=== PATIENT | female | born 1940 | race Caucasian/White ===

== ENCOUNTER → 2016-09-15 | Outpatient (CLI) | payer BC ==
[~2016-09-15] MED LIST: ACET1TAB84 PO; ALBU18002 INH; ALBUAER2 INH; AMLO-110 PO; ASPCH81X PO; CEPH500C2 PO; CHOL2000 PO; CHOL20007 PO; CLR10 PO; COEN100C7 PO; COQ-10 PO; CYCL0.052 OPB; GLUC1TAB44 PO; GLUCTAB7 PO; HYDR-5688 PO; KETO0.5S33 OPR; LETR2TAB PO; LEVO150T9 PO; LORA10CA2 PO; METF1000 PO; MOME50SP5 NAE; MULT-506 PO; OLME40TA30 PO; OMEG10007 PO; PANT40TA PO; PRED1SUS3 OPR; PREMARIN EXT; QVRINH80 INH; RANI150T3 PO; RSTOPS OPB; SIMV20TA2 PO
== END | disposition home or self-care (01) ==
LOC: C.RDSM 14:15
PROVIDERS: ATTEND Physical Medicine & Rehabilitation Sports Medicine
DX: M17.0 Bilateral primary osteoarthritis of knee (principal)

== ENCOUNTER → 2016-09-27 | Outpatient (CLI) | payer BC ==
[2016-09-27 13:16] LABS: URINE APPEARANCE CLEAR (CLEAR); URINE BILIRUBIN NEG (NEG); URINE COLOR DK YELLOW; URINE NITRITE POS (NEG); URINE SPECIFIC GRAVITY 1.003 (1.000-1.030); UROBILINOGEN NEG (NEG); ZZUR CULT IF INDIC CLEAN CATCH YES
[2016-09-27 13:23] LABS: MANUAL MICROSCOPIC REQUIRED? NO; REVIEW REQ? YES
== END | disposition home or self-care (01) ==
LOC: C.LABSPEC 10:54
PROVIDERS: ATTEND Internal Medicine
DX: R30.0 Dysuria (principal)

== ENCOUNTER → 2016-10-02 | Outpatient (CLI) | payer BC | END | disposition home or self-care (01) | LOC: C.LABBC 10:41 | PROVIDERS: ATTEND Family Medicine | DX: Z85.038 Personal history of other malignant neoplasm of large intestine (principal) ==

== ENCOUNTER → 2016-10-02 | Outpatient (CLI) | payer BC ==
--- NOTE | 2016-10-02 10:42 | DIAGNOSTIC IMAGING REPORT ---
CT OF THE CHEST WITHOUT IV CONTRAST CLINICAL HISTORY: Lung nodule. COMPARISON STUDY: Chest CTs September 22, 2014 and September 28, 2015 CT DOSE: 842.27 mGy.cm TECHNIQUE: Axial images of the chest were obtained without IV contrast. Images were reviewed in the axial, sagittal, and coronal planes. IV contrast was not administered for this examination. FINDINGS: No enlarged axillary, mediastinal or hilar lymph nodes are present. Size of the heart is at the upper limits of normal. Central airways are patent. Subpleural reticulation and groundglass opacities are unchanged. Multiple pulmonary nodules are unchanged since CT of September 22, 2014. The largest of these is an 8 mm right upper lobe nodule shown on image 106 of 336. No new nodules are identified. No pneumothorax or pleural effusion is present. Bony thorax and visualized portions of the upper abdomen are unremarkable. IMPRESSION: 1. No change in multiple pulmonary nodules since CT of September 22, 2014. Stability over this time period is indicative of a benign etiology. 2. No change in subpleural reticulation and groundglass opacities which suggest interstitial lung disease. Electronically signed by: Raymon Pate M.D. 10/02/2016 10:41 AM Dictated Date/Time: 10/02/2016 10:32 AM
== END | disposition home or self-care (01) ==
LOC: C.CTS 10:11
PROVIDERS: ATTEND Family Medicine
DX: R91.8 Other nonspecific abnormal finding of lung field (principal); Z85.038 Personal history of other malignant neoplasm of large intestine

== ENCOUNTER → 2016-10-08 | Outpatient (CLI) | payer BC ==
--- NOTE | 2016-10-08 16:13 | MAMMOGRAPHY REPORT ---
BILATERAL DIGITAL SCREENING MAMMOGRAM WITH CAD: 10/08/2016 CLINICAL HISTORY: Routine screening. Patient has no complaints. TECHNIQUE: Bilateral CC, MLO and repeat CC views with the nipples in profile were obtained. Current study was also evaluated with a Computer Aided Detection (CAD) system. COMPARISON: Comparison is made to exams dated: 09/28/2014 mammogram, 09/26/2013 mammogram, 09/22/2012 mammogram, 09/16/2011 mammogram, 09/13/2010 mammogram, and 08/28/2009 mammogram - [facility]. BREAST COMPOSITION: There are scattered areas of fibroglandular density in both breasts. FINDINGS: There is a new grouping of microcalcifications in the upper outer middle one third of the left breast, for which additional spot magnification views are recommended. There is nodularity in the posterior aspect of each breast, along the posterior nipple line on the C C views that appears similar dating back to at least 09/22/2012, and a stable subcentimeter circumsc ribed mass in the medial anterior left breast. No other suspicious mass, architectural distortion o r cluster of microcalcifications is seen bilaterally. IMPRESSION: ACR BI-RADS CATEGORY 0: INCOMPLETE EVALUATION: NEED ADDITIONAL IMAGING EVALUATION The new grouping of microcalcifications in the left upper outer breast needs additional evaluation. The patient will be called to schedule an appointment. Approximately 10% of breast cancers are not detected with mammography. A negative mammographic repor t should not delay biopsy if a clinically suggestive mass is present. Lucy Valencia M.D. ay/:10/08/2016 13:31:57 Service Tech/Welder: Judith Dominguez, [facility] letter sent: Addl Imaging 0 BI-RADS Code: ACR BI-RADS Category 0: Incomplete Evaluation: Need Additional Imaging Evaluation
== END | disposition home or self-care (01) ==
LOC: C.MAMM 12:43
PROVIDERS: ATTEND Obstetrics & Gynecology
DX: Z12.31 Encounter for screening mammogram for malignant neoplasm of breast (principal); R92.0 Mammographic microcalcification found on diagnostic imaging of breast

== ENCOUNTER → 2016-10-13 | Outpatient (CLI) | payer BC ==
--- NOTE | 2016-10-13 15:37 | MAMMOGRAPHY REPORT ---
UNILATERAL LEFT DIGITAL DIAGNOSTIC MAMMOGRAM: 10/13/2016 CLINICAL HISTORY: Call back from screening mammography for new clustered microcalcifications in the upper outer quadrant of the left breast. TECHNIQUE: Spot magnification left CC and ML views were obtained. COMPARISON: Comparison is made to exams dated: 10/08/2016 mammogram, 10/02/2015 mammogram, 09/28/2014 m ammogram, and 09/26/2013 mammogram - [facility]. BREAST COMPOSITION: There are scattered areas of fibroglandular density in the left breast. FINDINGS: There is a new 3.5 mm cluster of pleomorphic microcalcifications in the upper outer middl e one third of the left breast. No obvious associated mass, asymmetry or architectural distortion. The microcalcifications are indeterminate, warranting further evaluation with tissue sampling. IMPRESSION: ACR BI-RADS CATEGORY 4C: MODERATE SUSPICION FOR MALIGNANCY Left breast stereotactic guided biopsy is recommended for a new 3.5 mm cluster of pleomorphic microc alcifications in the left upper outer middle one third of the breast. These results and recommendations were discussed with the patient at the time of the exam. She tent atively scheduled the biopsy prior to leaving our department. Approximately 10% of breast cancers are not detected with mammography. A negative mammographic repor t should not delay biopsy if a clinically suggestive mass is present. Lucy Valencia M.D. ay/:10/13/2016 14:12:[address] Magistrate: Bridget GARCIA)(Gavin), [facility] letter sent: Abnormal 4/5 BI-RADS Code: ACR BI-RADS Category 4C: Moderate Suspicion For Malignancy
== END | disposition home or self-care (01) ==
LOC: C.MAMM 13:42
PROVIDERS: ATTEND Obstetrics & Gynecology
DX: R92.0 Mammographic microcalcification found on diagnostic imaging of breast (principal)

== ENCOUNTER → 2016-10-28 | Outpatient (CLI) | payer BC ==
--- NOTE | 2016-10-28 13:13 | Discharge Instructions ---
Discharge Instructions Procedure Procedure Date: Oct 28, 2016. Reason for visit: Left breast microcalcifications. Discharge Discharge Date: Oct 28, 2016. Discharge Diagnosis: post left breast stereotactic guided biopsy Medications Restart Stopped Medication(s): May restart Aspirin tonight Instructions Activity Recommendations: Additional Limitations (see below) Return to School/Work: no limitations Recommended Home Diet: No Limitations Provider Instructions: ACTIVITY RECOMMENDATIONS: * No lifting, pushing, pulling or exercising the affected side for three days. RETURN TO SCHOOL/WORK: * You may return to work/school after the procedure, but do not perform any strenuous activities for 24 to 48 hours. MEDICATIONS: * Tylenol (two 325 mg) every four to six hours if needed for mild pain (if not allergic to Tylenol). DIET: * Resume previous diet. SPECIAL CARE INSTRUCTIONS: * Keep biopsy site dry for 24 hours. May shower after 24 hours, but do not soak (bathe) incision. * May remove Tegaderm (plastic patch) tomorrow AFTER showering. * Leave the steri-strips on for one week. Allow the steri-strips to fall off by themselves. If not off after one week, you may remove them. You may place a Bandaid crosswise over the strips, if desired. * Apply ice 10 minutes on and 10 minutes off as needed. * Wear a bra at bedtime to sleep more comfortably for 2-3 days. * Your referring physician should have the results after approximately 5 to 7 business days. * Call for unusual bleeding, fever, drainage, etc or if you have any questions call [phone] during normal business hours or after hours call Dr Valencia, . FOLLOW UP VISIT: Follow-up with Referring Physician as scheduled. Allergies Coded Allergies: Latex1 -Allergic Contact Dermititis (Verified Allergy, Mild, RASH, ) Influenza Vaccines (Verified Allergy, Unknown, NEURO RX, 07/22/16) Hema Leal Recommendations: Call your doctor if: * Temperature above 101 degrees * Pain not relieved by pain medicine ordered * There is increased drainage or redness from any incision * You have any unanswered questions or concerns. Your Doctors Instructions noted above were prepared by provider Lucy Valencia. Patient Signature Section: Patient Instructions Signature Page Kerri Gerardo Patient (or Guardian) Signature/Date: I have read and understand the instructions given to me by my caregivers. Caregiver/RN/Doctor Signature/Date: The above-named patient and/or guardian has received patient instructions on this date. + Original Patient Signature Page (only) stays with chart. Please make copy for patient.
--- NOTE | 2016-10-28 15:57 | MAMMOGRAPHY REPORT ---
UNILATERAL LEFT DIGITAL DIAGNOSTIC MAMMOGRAM: 10/28/2016 CLINICAL HISTORY: Status post left breast stereotactic guided biopsy of a new cluster of microcalcif ications in the upper outer quadrant. Please refer to the report from left breast stereotactic biopsy performed at the same time for full detail. IMPRESSION: POST PROCEDURE IMAGING FOR MARKER PLACEMENT Please refer to the report from left breast stereotactic biopsy performed at the same time for full detail. Approximately 10% of breast cancers are not detected with mammography. A negative mammographic repor t should not delay biopsy if a clinically suggestive mass is present. Lucy Valencia M.D. ay/:10/28/2016 13:15:38 Dbas: Bridget SANDHU(Gabbi)(Gavin), [facility] BI-RADS Code: Post Procedure Imaging For Marker Placement
--- NOTE | 2016-10-28 15:57 | MAMMOGRAPHY REPORT ---
STEREOTACTIC GUIDED BIOPSY LEFT BREAST: 10/28/2016 CLINICAL HISTORY: New indeterminate 3.5 mm cluster of microcalcifications in the upper outer middle one third of left breast. Patient presents for stereotactic biopsy. COMPARISON: Comparison is made to exams dated: 10/08/2016 mammogram, 10/02/2015 mammogram, 09/28/2014 m ammogram, and 10/13/2016 mammogram - [facility]. PATIENT CONSENT: After explaining the risks, benefits and alternatives of the procedure to the patie nt, informed consent was obtained both verbally and in writing. Specific risks include: Bleeding, i nfection, puncture of adjacent structure, nontarget biopsy, sampling error, metal allergy and medica tion reaction. PROCEDURE DESCRIPTION: A time-out was performed and the left breast was confirmed as the site of bio psy. The patient was placed prone on the stereotactic biopsy table and the breast was placed in late ralmedial compression. A yard coupler image was obtained that demonstrated the clustered microcalcificatio ns in question. Repositioning was performed twice with rolling the breast due to blood vessels over lying the calcifications. Then +15 and -15 stereo pair images were obtained. The calcifications w ere targeted utilizing the coordinates obtained either computer. The skin was prepped with Betadine . 1% Lidocaine with and without epinipherine was administered as local anesthesia. A small skin inci gibran was made. Through the incision, the needle was inserted to the depth determined by the compute r. 5 samples were obtained using a [place] [employer] 9-gauge vacuum-assisted biopsy device. The specimen r adiograph demonstrated several teleservices representative microcalcifications, therefore, a metallic marker was placed at the biopsy site. There was no immediate complication. Hemostasis was achieved after severa l minutes of manual compression. The samples were sent to pathology in 2 containers one labeled wit h calcifications and the other labeled adjacent/remaining tissue. All of the samples were obtained from the same single biopsy site. Postprocedure CC and ML views of the left breast demonstrate a new dumbbell-shaped metallic biopsy m arker and no significant hematoma in the upper outer middle one third of the left breast, at the sit e of the biopsied clustered microcalcifications. IMPRESSION: STEREOTACTIC GUIDED BIOPSY Status post left breast stereotactic guided biopsy of clustered microcalcifications in the upper out er quadrant, with biopsy marker placed at the site. The patient will receive notification of the biopsy results from her referring physician. Lucy Valencia M.D. ay/:10/28/2016 13:31:08 Clothes Ironer: Bridget MERCER (R)), [facility]
== END | disposition home or self-care (01) ==
LOC: C.MAMM 12:22
PROVIDERS: ATTEND Obstetrics & Gynecology
DX: R92.0 Mammographic microcalcification found on diagnostic imaging of breast (principal); C50.919 Malignant neoplasm of unspecified site of unspecified female breast

== ENCOUNTER → 2016-11-26 | Day surgery (SDC) | payer BC ==
[2016-11-07 08:07] VITALS: BMI 39.0
[~2016-11-26] VITALS: Ht 167.6 cm; Wt 109.1 kg
[~2016-11-26] MED LIST changes: -ALBUAER2 INH; -CHOL2000 PO; -COQ-10 PO; -GLUC1TAB44 PO; -KETO0.5S33 OPR; +LIDOCAINE HCL 2% 2 ML VIAL (20MG/ML) ONE; -LORA10CA2 PO; -PRED1SUS3 OPR; +PROPOFOL IV EMULSION 10 MG/ML 20 ML VIAL IV ONE; -RSTOPS OPB; +SODIUM CHLORIDE 0.9% 500ML 500 ML IV ONE
[2016-11-26 13:50] VITALS: Ht 167.6 cm; Wt 109.1 kg
--- NOTE | 2016-11-26 14:48 | Endo History and Physical ---
History & Physical Date of Service: Nov 26, 2016. Chief Complaint: Hx colon Ca-f/u Referring Physician: Dr. Melissa Swain History of Present Illness 76 yo CF who presents for colonoscopy secondary to history of colon cancer. Past Medical History Diabetes, Arthritis, Asthma, Gastrointestinal Disorder, Reflux, Cancer, High Cholesterol, Sleep Apnea, Hypertension, Thyroid Disease Past Surgical History Hx Cardiac Surgery: No Hx Internal Defibrillator: No Hx Pacemaker: No Hx Abdominal Surgery: Yes (SIGMOIDECTOMY, CHOLECYSTECTOMY, C-SECTIONS X4, COMPLETE HYSTERECTOMY) Hx of Implantable Prosthesis: No Hx Cancer Surgery: Yes (SKIN CA - RESECTED, COLONOSCOPY, ) Hx Thoracic Surgery: No Hx Orthopedic: No Hx Urinary Tract Surgery: No Family History Esophogeal CA Social History Smoking Status: Never Smoker Hx Substance Use: No Hx Alcohol Use: No Allergies Coded Allergies: Hylan G-F 20 (Verified Allergy, Severe, KNEE SWELLING, 11/10/16) BECKY Inhibitors (Verified Allergy, Unknown, COUGH, 11/07/16) Cefaclor (Verified Allergy, Unknown, SICK, 11/07/16) Influenza Vaccines (Verified Allergy, Unknown, NEURO RX, 11/07/16) Current Medications Reported Home Medications Medications Dose Route/Sig Max Daily Dose Days Date Category [Premarin] 0.625 Mg EXT 2XWK 11/07/16 Reported Proair Respiclick (Albuterol Sulfate) 108 Mcg/Act Aer 2 Puffs INH Q4H PRN 11/07/16 Reported Coq10 (Coenzyme Q10 (Ubidecarenone)) 100 Mg Cap 1 Cap PO QAM 11/07/16 Reported Vitamin D3 (Cholecalciferol) 2,000 Unit Tab 1 Tab PO QAM 90 11/07/16 Reported Glucosamine Chondroitin (Rwuzmnecqhx-Iiertsazuai-Snb C-) 1 Tab Tab 1 Tab PO BID 11/07/16 Reported Restasis (Cyclosporine (Ophth)) 0.05 % Emu 1 Drop OPB BID 11/07/16 Reported Norvasc (Amlodipine Besylate) 5 Mg Tab 5 Mg PO QAM 11/07/16 Reported Multivitamin (Multivitamins) Tab 1 Tab PO QAM 12/24/15 Reported Aspirin Chewable (Aspirin) 81 Mg Chew 81 Mg PO QAM 12/24/15 Reported [place]-3 (Fish Oil) 1 Ea Cap 1 Cap PO TID 12/24/15 Reported Protonix (Pantoprazole Sodium) 40 Mg Tab 40 Mg PO QAM 12/24/15 Reported Zantac (Ranitidine HCl) 150 Mg Tab 150 Mg PO HS 12/24/15 Reported Glucophage (Metformin Hcl) 1,000 Mg Tab 1,000 Mg PO BID 12/24/15 Reported Levothyroxine Sodium 150 Mcg Tab 1 Tab PO QAM 12/24/15 Reported Benicar Hct 40/12.5 (Olmesartan/HCTZ) Tab 1 Tab PO QAM 12/24/15 Reported Zocor (Simvastatin) 20 Mg Tab 20 Mg PO QPM 05/10/07 Reported Nasonex (Mometasone Furoate) [place] 1 [place] SHASHI BID 05/10/07 Reported Qvar Hfa 80 Mcg * (Beclomethasone Dipropionate) Inh 2 Puff INH BID 05/10/07 Reported Vital Signs Weight (Kilograms): 109.09 Height (Feet): 5 Height (Inches): 6 Date Time Temp Pulse Resp B/P Pulse Ox O2 Delivery O2 Flow Rate FiO2 11/26/16 14:05 37.1 86 20 182/70 95 Room Air Physical Exam General Appearance: WD/WN, no apparent distress Respiratory/Chest: Auscultation: breath sounds normal Cardiovascular: Heart Auscultation: RRR Abdomen: Bowel Sounds: normal Inspection & Palpation: soft, non-distended, no tenderness, guarding & rebound Assessment and Plan Assessment: 76 yo CF who presents for colonoscopy secondary to history of colon cancer. Plan: Proceed with colonoscopy.
--- NOTE | 2016-11-26 15:10 | Discharge Instructions ---
Endoscopy Patient Instructions Date / Procedure(s) Performed Nov 26, 2016. Colonoscopy Allergy Information Coded Allergies: Hylan G-F 20 (Verified Allergy, Severe, KNEE SWELLING, 11/10/16) BECKY Inhibitors (Verified Allergy, Unknown, COUGH, 11/07/16) Cefaclor (Verified Allergy, Unknown, SICK, 11/07/16) Influenza Vaccines (Verified Allergy, Unknown, NEURO RX, 11/07/16) Discharge Date / Findings Nov 26, 2016. Diverticulosis Internal hemorrhoids Medication Instructions OK to resume all medications today as prescribed. Reported Home Medications Medications Dose Route/Sig Max Daily Dose Days Date Category [Premarin] 0.625 Mg EXT 2XWK 11/07/16 Reported Proair Respiclick (Albuterol Sulfate) 108 Mcg/Act Aer 2 Puffs INH Q4H PRN 11/07/16 Reported Coq10 (Coenzyme Q10 (Ubidecarenone)) 100 Mg Cap 1 Cap PO QAM 11/07/16 Reported Vitamin D3 (Cholecalciferol) 2,000 Unit Tab 1 Tab PO QAM 90 11/07/16 Reported Glucosamine Chondroitin (Oebiuzggyip-Wqtjrdjbezc-Shq C-) 1 Tab Tab 1 Tab PO BID 11/07/16 Reported Restasis (Cyclosporine (Ophth)) 0.05 % Emu 1 Drop OPB BID 11/07/16 Reported Norvasc (Amlodipine Besylate) 5 Mg Tab 5 Mg PO QAM 11/07/16 Reported Multivitamin (Multivitamins) Tab 1 Tab PO QAM 12/24/15 Reported Aspirin Chewable (Aspirin) 81 Mg Chew 81 Mg PO QAM 12/24/15 Reported [place]-3 (Fish Oil) 1 Ea Cap 1 Cap PO TID 12/24/15 Reported Protonix (Pantoprazole Sodium) 40 Mg Tab 40 Mg PO QAM 12/24/15 Reported Zantac (Ranitidine HCl) 150 Mg Tab 150 Mg PO HS 12/24/15 Reported Glucophage (Metformin Hcl) 1,000 Mg Tab 1,000 Mg PO BID 12/24/15 Reported Levothyroxine Sodium 150 Mcg Tab 1 Tab PO QAM 12/24/15 Reported Benicar Hct 40/12.5 (Olmesartan/HCTZ) Tab 1 Tab PO QAM 12/24/15 Reported Zocor (Simvastatin) 20 Mg Tab 20 Mg PO QPM 05/10/07 Reported Nasonex (Mometasone Furoate) Calvin 1 Calvin SHASHI BID 05/10/07 Reported Qvar Hfa 80 Mcg * (Beclomethasone Dipropionate) Inh 2 Puff INH BID 05/10/07 Reported Provider Instructions Activity Restrictions - No exercising or heavy lifting for 24 hours. - Do not drink alcohol the day of the procedure. - Do not drive a car or operate machinery until the day after the procedure. - Do not make any important decisions or sign important papers in 24 hours after the procedure. Following Day: - Return to full activity which may include returning to work/school. Diet Start your diet with liquids and light foods (jello, soup, juice, toast). Then eat your usual diet if not nauseated. Treatment For Common After Affects For mild abdominal pain, bloating, or excessive gas: - Rest - Eat lightly - Lie on right side Follow-Up Information Follow-up with Dr. Melissa Swain as scheduled Anesthesia Information What You Should Know You have had a procedure that required some medicine to reduce anxiety and discomfort. This treatment is called moderate sedation. After receiving the treatment, you may be sleepy, but you will be able to breathe on your own. The effects of the treatment may last for several hours. Follow these instructions along with Activity/Diet recommendations noted above: * Do NOT do anything where dizziness or clumsiness would be dangerous. * Rest quietly at home today, then you can be up and about tomorrow. * Have a responsible person stay with you the rest of today. * You may have had an I.V. today. If so, you may take the dressing off later today. Recommendations Call your doctor if: * Trouble breathing * Continuous vomiting for more than 24 hours * Temperature above 101 degrees * Severe abdominal pain or bloating * Pain not relieved by pain medicine ordered * There is increased drainage or redness from any incision * A large amount of rectal bleeding greater than 2-3 tablespoons. (If you had a polyp/s removed or have hemorrhoids, a small amount of blood - from the rectum is to be expected.) * You have any unanswered questions or concerns. IN THE EVENT OF A SERIOUS EMERGENCY, GO TO THE NEAREST EMERGENCY ROOM Your discharge instructions were prepared by provider Matthew Tyson. Patient Instructions Signature Page Kerri Gerardo Patient (or Guardian) Signature/Date: I have read and understand the instructions given to me by my caregivers. Caregiver/RN/Doctor Signature/Date: The above-named patient and/or guardian has received patient instructions on this date. + Original Patient Signature Page (only) stays with chart. Please make copy for patient.
--- NOTE | 2016-11-26 15:14 | GI REPORT ---
Procedure Date: 11/26/2016 2:34 PM THIS REPORT HAS BEEN AMENDED Addendum Number: 1 Addendum Date: 11/26/2016 3:52:07 PM Recommend repeat colonoscopy in 6 months. Procedure: Colonoscopy Indications: High risk colon cancer surveillance: Personal history of colonic polyps, High risk colon cancer surveillance: Personal history of colon cancer Medicines: Monitored Anesthesia Care Complications: No immediate complications. Estimated Blood Loss: Estimated blood loss: none. Procedure: Pre-Anesthesia Assessment: - Prior to the procedure, a History and Physical was performed, and patient medications and allergies were reviewed. The patient's tolerance of previous anesthesia was also reviewed. The risks and benefits of the procedure and the sedation options and risks were discussed with the patient. All questions were answered, and informed consent was obtained. Prior Anticoagulants: The patient has taken no previous anticoagulant or antiplatelet agents. ASA Grade Assessment: III - A patient with severe systemic disease. After reviewing the risks and benefits, the patient was deemed in satisfactory condition to undergo the procedure. After I obtained informed consent, the scope was passed under direct vision. Throughout the procedure, the patient's blood pressure, pulse, and oxygen saturations were monitored continuously. The Scope was introduced through the anus and advanced to the terminal ileum. The colonoscopy was performed without difficulty. The patient tolerated the procedure well. The quality of the bowel preparation was good. The terminal ileum, ileocecal valve, appendiceal orifice, and rectum were photographed. Findings: Multiple small-mouthed diverticula were found in the sigmoid colon. Non-bleeding internal hemorrhoids were found during retroflexion. The hemorrhoids were small. Impression: - Diverticulosis in the sigmoid colon. - Non-bleeding internal hemorrhoids. - No specimens collected. Recommendation: - Resume previous diet. - Continue present medications. - Repeat colonoscopy in 3 years for surveillance. - Return to primary care physician as previously scheduled. Matthew Tyson DO 11/26/2016 3:14:44 PM This report has been signed electronically. Note Initiated On: 11/26/2016 2:34 PM I attest to the content of the Intraoperative Record and orders documented therein, exceptions below Matthew Tyson DO 11/26/2016 3:52:47 PM This report has been signed electronically.
--- NOTE | 2016-11-26 15:30 | Anesthesiology Progress Note ---
Anesthesia Post Op Note Date & Time Nov 26, 2016 at 15:29 Vital Signs Pain Intensity: 0 Vital Signs Past 12 Hours Date Time Temp Pulse Resp B/P Pulse Ox O2 Delivery O2 Flow Rate FiO2 11/26/16 15:09 75 20 111/54 95 Room Air 11/26/16 14:05 37.1 86 20 182/70 95 Room Air Notes Mental Status: alert / awake / arousable, participated in evaluation Pt Amnestic to Procedure: Yes Nausea / Vomiting: adequately controlled Pain: adequately controlled Airway Patency, RR, SpO2: stable & adequate BP & HR: stable & adequate Hydration State: stable & adequate Anesthetic Complications: no major complications apparent
[2016-11-26 15:38] VITALS: BP 150/73; PULSE 73; O2SAT 94
== END | disposition home or self-care (01) ==
LOC: C.GI 13:12
PROVIDERS: ATTEND Internal Medicine
DX: Z12.11 Encounter for screening for malignant neoplasm of colon (principal); Z85.038 Personal history of other malignant neoplasm of large intestine; Z86.010 Personal history of colon polyps; K57.30 Diverticulosis of large intestine without perforation or abscess without bleeding; K64.8 Other hemorrhoids; G47.33 Obstructive sleep apnea (adult) (pediatric); E11.9 Type 2 diabetes mellitus without complications; J45.909 Unspecified asthma, uncomplicated; E78.00 Pure hypercholesterolemia, unspecified; Z90.49 Acquired absence of other specified parts of digestive tract; Z90.710 Acquired absence of both cervix and uterus; Z90.89 Acquired absence of other organs; Z88.7 Allergy status to serum and vaccine; E66.9 Obesity, unspecified; Z68.39 Body mass index [BMI] 39.0-39.9, adult; Z80.0 Family history of malignant neoplasm of digestive organs

== ENCOUNTER 2016-12-03 07:39 | Observation (INO) | payer BC ==
[2016-11-10 09:26] VITALS: BMI 39.0
--- NOTE | 2016-11-10 10:06 | PAT Medication Instructions ---
Service Date Nov 10, 2016. Current Home Medication List Albuterol Sulfate (Proair Respiclick), 2 PUFFS INH Q4H PRN for Shortness of Breath Amlodipine (Norvasc), 5 MG PO QAM Aspirin (Aspirin Chewable), 81 MG PO QAM Beclomethasone Dip (Qvar Hfa 80 Mcg *), 2 PUFF INH BID Cholecalciferol (Vitamin D3), 1 TAB PO QAM Coenzyme Q10 (Ubidecarenone) (Coq10), 1 CAP PO QAM Cyclosporine (Ophth) (Restasis), 1 DROP OPB BID Fish Oil (Boling-3), 1 CAP PO TID Nayjvnholkh-Mmlaaljwghv-Rjm C- (Glucosamine Chondroitin), 1 TAB PO BID Levothyroxine Sodium (Levothyroxine Sodium), 1 TAB PO QAM Metformin Hcl (Glucophage), 1,000 MG PO BID Mometasone Furoate (Nasonex), 1 SPRAY SHASHI BID Multivitamin (Multivitamin), 1 TAB PO QAM Olmesartan/Hctz (Benicar Hct 40/12.5), 1 TAB PO QAM Pantoprazole (Protonix), 40 MG PO QAM Ranitidine Hcl (Zantac), 150 MG PO HS Simvastatin (Zocor), 20 MG PO QPM [Premarin], 0.625 MG EXT 2XWK Medication Instructions For Your Scheduled Surgery - Continue as directed: [Premarin], 0.625 MG EXT 2XWK - Hold the following medications 2 weeks prior to surgery: Fish Oil ([place]ol[place]-3), 1 CAP PO TID Rilczdffuih-Sinyyspegoa-Wlq C- (Glucosamine Chondroitin), 1 TAB PO BID Coenzyme Q10 (Ubidecarenone) (Coq10), 1 CAP PO QAM - Hold the following medications 48 hours prior to surgery: Metformin Hcl (Glucophage), 1,000 MG PO BID - Hold the following medications the morning of surgery: Cholecalciferol (Vitamin D3), 1 TAB PO QAM Multivitamin (Multivitamin), 1 TAB PO QAM Olmesartan/Hctz (Benicar Hct 40/12.5), 1 TAB PO QAM - Take the following medications the morning of surgery with a sip of water: Aspirin (Aspirin Chewable), 81 MG PO QAM Amlodipine (Norvasc), 5 MG PO QAM Albuterol Sulfate (Proair Respiclick), 2 PUFFS INH Q4H PRN for Shortness of Breath (use if needed; BRING TO HOSPITAL) Beclomethasone Dip (Qvar Hfa 80 Mcg *), 2 PUFF INH BID Levothyroxine Sodium (Levothyroxine Sodium), 1 TAB PO QAM Mometasone Furoate (Nasonex), 1 SPRAY SHASHI BID Cyclosporine (Ophth) (Restasis), 1 DROP OPB BID Pantoprazole (Protonix), 40 MG PO QAM - Take the following medications as scheduled the night before surgery: Albuterol Sulfate (Proair Respiclick), 2 PUFFS INH Q4H PRN for Shortness of Breath Beclomethasone Dip (Qvar Hfa 80 Mcg *), 2 PUFF INH BID Mometasone Furoate (Nasonex), 1 SPRAY SHASHI BID Cyclosporine (Ophth) (Restasis), 1 DROP OPB BID Ranitidine Hcl (Zantac), 150 MG PO HS Simvastatin (Zocor), 20 MG PO QPM If you have any questions please call us at [phone] or [phone] or [phone]
[2016-11-10 11:05] LABS: BASO % 0.5 %; BASO ABS # 0.03 K/uL (0-0.2); COMPLETE YES; EOS % 1.4 %; HEMATOCRIT 40.5 % (37-47); IG% 0.2 %; LYMPH % 43.1 %; LYMPH ABS # 2.78 K/uL (1.2-3.4); MEAN CELL VOLUME 86.9 fL (80-100); MEAN CORPUSCULAR HEMOGLOBIN 29.4 pg (25-34); MEAN CORPUSCULAR HGB CONC 33.8 g/dl (32-36); MEAN PLATELET VOLUME 10.2 fL (7.4-10.4); MONO % 14.4 %; NEUT % 40.4 %; PLATELET COUNT 256 K/uL (130-400); RED BLOOD COUNT 4.66 M/uL (4.2-5.4); WHITE BLOOD COUNT 6.45 K/uL (4.8-10.8)
[2016-11-10 11:24] LABS: BUN/CREATININE RATIO 23.2 (10-20); CREATININE 0.88 mg/dl (0.60-1.20); POTASSIUM 4.3 mmol/L (3.5-5.1)
[~2016-12-03] VITALS: Ht 167.6 cm; Wt 107.0 kg
[2016-12-03] VITALS (7 sets, daily range): BP systolic 130–198; BP diastolic 59–84; PULSE 80–90; TEMP 37–37.1; O2SAT 92–95; Ht 167.6 cm; Wt 107.0 kg
[~2016-12-03 07:39] MED LIST changes: -ACET1TAB84 PO; +BUPIVACAINE 0.5 % 5 MG/1 ML MPF 30ML VIAL ONE; +CEFAZOLIN 2000 MG/60 ML D5W IV SCH; -CEPH500C2 PO; -CLR10 PO; -HYDR-5688 PO; +ISOSULFAN BLUE 10 MG/ML VIAL 5 ML ONE; +LACTATED RINGER'S 1000ML 1,000 ML IV SCH; -LETR2TAB PO; -LIDOCAINE HCL 2% 2 ML VIAL (20MG/ML) ONE; -PROPOFOL IV EMULSION 10 MG/ML 20 ML VIAL IV ONE; -SODIUM CHLORIDE 0.9% 500ML 500 ML IV ONE
[2016-12-03] MEDS ORDERED: CLR10 PO (09:08)
[2016-12-03] MEDS ORDERED: ACET1TAB84 PO (09:08)
[2016-12-03] MEDS ORDERED: PROPOFOL IV EMULSION 10 MG/ML 20 ML VIAL IV ONE ×3 (09:48→11:55)
[2016-12-03] MEDS ORDERED: LIDOCAINE HCL 2% 2 ML VIAL (20MG/ML) ONE (09:48)
[2016-12-03] MEDS ORDERED: FENTANYL CITRATE INJ 50 MCG/1 ML 2 ML VIAL ONE ×2 (09:49→11:04)
--- NOTE | 2016-12-03 10:38 | DIAGNOSTIC IMAGING REPORT ---
LEFT BREAST LYMPHOSCINTIGRAPHY INJECTIONS CLINICAL HISTORY: Left breast carcinoma COMPARISON STUDY: No previous studies for comparison. FINDINGS: 5 periareolar intradermal injections were performed utilizing a total dose of 0.5 mCi of technetium 99m Lymphoseek. No imaging was performed. The patient was sent to the operating room for intraoperative localization. IMPRESSION: Left breast lymphoscintigraphy injections were performed Electronically signed by: Ellis Ramirez M.D. 12/03/2016 10:36 AM Dictated Date/Time: 12/03/2016 10:33 AM
[2016-12-03] MEDS ORDERED: SUCCINYLCHOLINE CHLORIDE 20 MG/ML 10 ML VIAL IV ONE (11:23)
[2016-12-03] MEDS ORDERED: DiphenhydrAMINE HCL 50 MG/ML VIAL ONE (11:23)
[2016-12-03] MEDS ORDERED: DEXAMETHASONE SOD INJ 4 MG/ML VIAL ONE (11:23)
[2016-12-03] MEDS ORDERED: ONDANSETRON INJ 2 MG/ML 2 ML VIAL ONE (11:23)
[2016-12-03] MEDS ORDERED: EpHEDrine SULFATE 50MG/5ML SYR ONE (11:28)
[2016-12-03] MEDS ORDERED: METHYLENE BLUE 0.5% 10 ML VIAL ONE (11:34)
--- NOTE | 2016-12-03 11:56 | [facility] Post Operative Brief Note ---
Immediate Operative Summary Operative Date Dec 03, 2016. Pre-Operative Diagnosis Left breast cancer Post-Operative Diagnosis Same as preoperative diagnosis Procedure(s) Performed Left breast lumpectomy with needle localization and left sentinel lymph node biopsy Surgeon Dr. Alex Ochoa Helmet Hat Sweatband Puncher Surgeon(s) Scotty Chin PA-C Estimated Blood Loss 10 mL Findings SLN neg Specimens Frozen Section #1: Left sentinel lymph node #1 Sent to lab at 1118. Permanent specimens A: Left breast tissue, skin anterior, long silk lateral, short silk superior B: Additional superior tissue, left breast, methylene blue new margin C: Additional inferior tissue, left breast, methylene blue new margin Anesthesia gen Complication(s) None Disposition Recovery Room / PACU
[2016-12-03] MEDS ORDERED: HYDROCODONE/ACETAMOPHEN 5/325MG TAB PO PRN (12:00)
[2016-12-03] MEDS ORDERED: MoRPHine SULFATE 2 MG/ML CARP IV PRN (12:00)
[2016-12-03] MEDS ORDERED: MoRPHine SULFATE 4 MG/ML 1 ML CARP\\VIAL IV PRN (12:00)
[2016-12-03] MEDS ORDERED: PROMETHAZINE HCL INJ 25 MG in SODIUM CHLORIDE 0.9% 50ML 50 ML IV PRN (12:00)
[2016-12-03] MEDS ORDERED: CEFAZOLIN IV 1,000 MG in DEXTROSE 5% 50ML 50 ML IV SCH (12:00)
[2016-12-03] MEDS ORDERED: ONDANSETRON INJ 2 MG/ML 2 ML VIAL IV PRN ×2 (12:00→12:45)
[2016-12-03] MEDS ORDERED: LACTATED RINGER'S 1000ML 1,000 ML IV PRN (12:31)
--- NOTE | 2016-12-03 12:32 | Anesthesiology Progress Note ---
Anesthesia Post Op Note Date & Time Dec 03, 2016 at 12:31 Vital Signs Pain Intensity: 1 Vital Signs Past 12 Hours Date Time Temp Pulse Resp B/P Pulse Ox O2 Delivery O2 Flow Rate FiO2 12/03/16 12:25 82 17 144/55 100 Mask 10 12/03/16 12:15 87 21 141/60 100 Mask 10 12/03/16 12:07 36.4 88 16 102/58 100 Mask 10 12/03/16 09:13 37.1 90 20 198/74 95 Room Air Notes Mental Status: alert / awake / arousable, participated in evaluation Pt Amnestic to Procedure: Yes Nausea / Vomiting: adequately controlled Pain: adequately controlled Airway Patency, RR, SpO2: stable & adequate BP & HR: stable & adequate Hydration State: stable & adequate Anesthetic Complications: no major complications apparent Pt doing very well. No complaints.
--- NOTE | 2016-12-03 12:39 | MAMMOGRAPHY REPORT ---
NEEDLE LOCALIZATION LEFT BREAST: 12/03/2016 CLINICAL HISTORY: 76-year-old woman with newly diagnosed left breast DCIS presents for preoperative needle and wire localization prior to lumpectomy. COMPARISON: Comparison is made to exams dated: 10/28/2016 stereotactic biopsy, 10/28/2016 mammogram, 10/13/2016 mammogram, 10/08/2016 mammogram, 10/02/2015 mammogram, and 09/28/2014 mammogram - [facility]. PATIENT CONSENT: The risks of the procedure were explained to the patient and informed consent was o btained. The patient denied eating or drinking anything this morning that would preclude anesthesia . With the patient in the seated position, the left breast was placed in lateralmedial compression. The biopsy marker clip was targeted utilizing an alphanumeric grid. The skin was cleansed with alco hol. 1% buffered lidocaine without epinephrine was administered. A 5 cm Brewer II needle and wire commendation was inserted into the breast and confirmed to be in good position with regard to the b iopsy marker clip. Then an image was obtained in the CC projection which demonstrated the biopsy ma rker clip adjacent to the localizing needle. A small adjustment was made and the wire was locked in place. On the final image, the jay of the wire is adjacent to the biopsy marker clip, which is lo cated just anterior to the localizing needle. The procedure including approach and needle length we re discussed with the operating surgeon prior to surgery. The patient was transferred to the operat ing room in satisfactory condition. The specimen radiograph demonstrates the localizing needle and wire combination, vascular calcificat ion and the metallic biopsy marker, compatible with successful preoperative localization and subsequ ent surgical excision. Final pathology is pending. IMPRESSION: NEEDLE LOCALIZATION Status post successful preoperative needle and wire localization for biopsy proven DCIS in the left upper outer quadrant. The imaged specimen includes the intended abnormality. The patient will receive notification of the results from her referring physician. Lucy Valencia M.D. ay/:12/03/2016 11:40:16 Dinker: Stephania GARCIA)(Gavin), [facility]
--- NOTE | 2016-12-03 12:39 | OPERATIVE REPORT ---
DATE OF OPERATION: 12/03/2016 PREOPERATIVE DIAGNOSIS: Left breast cancer. POSTOPERATIVE DIAGNOSIS: Same. NAME OF OPERATION: Left partial mastectomy with sentinel lymph node biopsy. STAFF SURGEON: Dr. Ochoa. ART PSYCHOTHERAPIST: Paramjit Chin PA-C. PROCEDURE: The patient was brought in the operating room and placed on the operating table in supine position. She had a needle placed in the left breast. She had undergone injection for lymphoscintigraphy. Her left breast and chest were prepped and draped in usual fashion. Marcaine 0.5% plain was used to anesthetize the skin in the axilla. Incision made, using the Neoprobe I was able to localize the sentinel lymph node which was sent for frozen section. It was negative. During the frozen section, we did perform lumpectomy/partial mastectomy. The needle was in the upper anterior lateral breast. Elliptical incision was made around this excising a small area of necrosis just above the needle, which was from previous biopsy site. Tissue was taken from around the needle. The specimen was then marked with the skin anterior, long silk suture lateral, short silk suture superior. Additional superior and inferior tissue were taken. Both specimens were marked with methylene blue as the new margin. Clips were placed in the breast. The deep tissue was reapproximated using 2-0 plain catgut suture then the skin reapproximated in the axilla using 4-0 nylon suture and in the breast using 5-0 Prolene suture. The patient was transferred to recovery room in stable condition. As a note, Dr. Valencia did confirm that the clip from the biopsy was within the center of the specimen. I attest to the content of the Intraoperative Record and any orders documented therein. Any exceptio ns are noted below.
[2016-12-03] MEDS ORDERED: FENTANYL CITRATE INJ 50 MCG/1 ML 2 ML VIAL IV PRN (12:45)
[2016-12-03] MEDS ORDERED: PROMETHAZINE HCL INJ 12.5 MG in SODIUM CHLORIDE 0.9% 50ML 50 ML IV PRN (12:45)
[2016-12-03] MEDS ORDERED: IV FLUIDS COMPLETED PRN (13:45)
[2016-12-03] MEDS ORDERED: CEPH500C2 PO (14:15)
[2016-12-03] MEDS ORDERED: HYDR-5688 PO (14:15)
--- NOTE | 2016-12-03 14:16 | Discharge Instructions ---
Discharge Instructions Date of Service Dec 03, 2016. Admission Reason for Admission: Left Breast Cancer, Diabetes W/Hosp Loc & Lymph In Discharge Discharge Diagnosis / Problem: Lt breast cancer Discharge Goals Goal(s): Decrease discomfort, Improve function, Improve disease control Activity Recommendations Activity Limitations: as noted below Lifting Limitations: no more than 10 pounds Exercise/Sports Limitations: until after follow-up appointment May Resume Sexual Activity: when tolerated Shower/Bathe: tomorrow Driving or Machine Use: 1 week SPECIAL CARE INSTRUCTIONS: * Cover incisions and change daily for comfort/drainage. * May use ibuprofen for pain as tolerated. * Expect some swelling and bruising. Call your doctor if: * Temperature above 101 degrees * Pain not relieved by pain medicine ordered * There is increased drainage or redness from any incision * You have any unanswered questions or concerns [phone]. FOLLOW UP VISIT: If not already scheduled, please call the office for a follow-up visit. for next week- some suture removal OFFICE PHONE NUMBER: Dr. Ochoa Office . Current Hospital Diet Patient's current hospital diet: Diabetes Type 2 Diet Discharge Diet Recommended Diet: Regular Diet Procedures Procedures Performed: Left breast lumpectomy with needle localization and left sentinel lymph node biopsy Pending Studies Studies pending at discharge: no Medical Emergencies . Who to Call and When: Medical Emergencies: If at any time you feel your situation is an emergency, please call 911 immediately. . Non-Emergent Contact Non-Emergency issues call your: Primary Care Provider, Surgeon . "Provider Documentation" section prepared by Alex Ochoa. VTE Core Measure Inpt VTE Proph given/why not?: SCD's
[2016-12-03] MEDS ORDERED: ALBUTEROL 0.083% NEBU SOLN 3 ML VIAL INH PRN (14:30)
[2016-12-03] MEDS: HYDROCODONE/ACETAMOPHEN 5/325MG TAB PO PRN ×2 (16:24→20:34)
[2016-12-03] MEDS ORDERED: DEXTROSE 50% 50 ML SYR IV PRN (18:15)
[2016-12-03] MEDS ORDERED: GLUCOSE 10 TABS/TUBE PO PRN (18:15)
[2016-12-03] MEDS ORDERED: GLUCAGON FOR INJ 1 MG VIAL SQ PRN (18:15)
[2016-12-03] MEDS ORDERED: GLUCOSE 40% GEL 15 GM TUBE PO PRN (18:15)
--- NOTE | 2016-12-03 18:24 | Medical Consult ---
Consultation Date of Consultation: Dec 03, 2016. Attending Physician: Alex Ochoa M.D. Reason for Consultation: Postoperative medical management History of Present Illness This patient is a 76-year-old female with history of stage I colon cancer, hypertension, asthma, allergies, osteoarthritis, GERD, hyperlipidemia, diabetes mellitus type 2, obstructive sleep apnea, hypothyroidism, and a more recent diagnosis of left-sided breast cancer. She underwent a stereotactic breast biopsy that confirmed cancer. She underwent a left lumpectomy with sentinel lymph node biopsy today with Dr. Ochoa. Postoperatively, she is doing very well. She denies any chest pain or shortness of breath, no nausea or vomiting, no headaches, no numbness or tingling anywhere. Her pain in the breast is very minimal at this time. Past Medical/Surgical History Past medical history: Hypertension Hyperlipidemia Asthma Allergies [place] arthritis GERD Hyperlipidemia History of stage I colon cancer Diabetes mellitus type 2 Central obstructive sleep apnea Hypothyroidism Breast cancer PAST SURGICAL HISTORY Colon cancer resection of large polyp through endoscopy Cholecystectomy Tonsillectomy Cataracts [place] teeth removal D&Cs 4 C-sections Sigmoid colectomy for diverticulitis Hysterectomy for fibroids and menorrhagia Family History Noncontributory due to age Social History Smoking Status: Never Smoker Alcohol Use: none Drug Use: none Marital Status: Housing Status: lives with family Occupation Status: retired (retired medical records coordinator) Allergies Coded Allergies: Hylan G-F 20 (Verified Allergy, Severe, KNEE SWELLING, 12/03/16) BECKY Inhibitors (Verified Allergy, Unknown, COUGH, 12/03/16) Cefaclor (Verified Allergy, Unknown, SICK, 12/03/16) Influenza Vaccines (Verified Allergy, Unknown, NEURO RX, 12/03/16) Home Medications Reported Home Medications Medications Dose Route/Sig Max Daily Dose Days Date Category Dose Instructions Keflex (Cephalexin Monohydrate) 500 Mg Cap 500 Mg PO TID 12/03/16 Rx [place] 5MG/325MG (Acetaminophen/Hydrocodone Bitart) Tab 1-2 Tablet PO Q 6 HRS PRN 12/03/16 Rx PRN PAIN Claritin (Loratadine) 10 Mg Tab 10 Mg PO DAILY 12/03/16 Reported Tylenol Arthritis Ext Rel (Acetaminophen) 650 Mg Cplt 650 Mg PO BID 12/03/16 Reported "ALWAYS TAKE ONE IN MORNING, MAYBE AT NIGHT IF I NEED IT" [Premarin] 0.625 Mg EXT 2XWK 11/07/16 Reported VAGINALLY Proair Respiclick (Albuterol Sulfate) 108 Mcg/Act Aer 2 Puffs INH Q4H PRN 11/07/16 Reported Coq10 (Coenzyme Q10 (Ubidecarenone)) 100 Mg Cap 1 Cap PO QAM 11/07/16 Reported Vitamin D3 (Cholecalciferol) 2,000 Unit Tab 1 Tab PO TID 90 11/07/16 Reported Glucosamine Chondroitin (Voamkvxgalt-Lbcqrjgoxhu-Min C-) 1 Tab Tab 1 Tab PO BID 11/07/16 Reported Restasis (Cyclosporine (Ophth)) 0.05 % Emu 1 Drop OPB BID 11/07/16 Reported Norvasc (Amlodipine Besylate) 5 Mg Tab 5 Mg PO QAM 11/07/16 Reported Multivitamin (Multivitamins) Tab 1 Tab PO QAM 12/24/15 Reported Aspirin Chewable (Aspirin) 81 Mg Chew 81 Mg PO QAM 12/24/15 Reported [place]-3 (Fish Oil) 1 Ea Cap 1 Cap PO TID 12/24/15 Reported Protonix (Pantoprazole Sodium) 40 Mg Tab 40 Mg PO QAM 12/24/15 Reported Zantac (Ranitidine HCl) 150 Mg Tab 150 Mg PO HS 12/24/15 Reported Glucophage (Metformin Hcl) 1,000 Mg Tab 1,000 Mg PO BID 12/24/15 Reported Levothyroxine Sodium 150 Mcg Tab 1 Tab PO QAM 12/24/15 Reported Benicar Hct 40/12.5 (Olmesartan/HCTZ) Tab 1 Tab PO QAM 12/24/15 Reported Zocor (Simvastatin) 20 Mg Tab 20 Mg PO QPM 05/10/07 Reported Nasonex (Mometasone Furoate) [place] 1 [place] SHASHI BID 05/10/07 Reported Qvar Hfa 80 Mcg * (Beclomethasone Dipropionate) Inh 2 Puff INH BID 05/10/07 Reported Current Inpatient Medications Current Inpatient Medications Medications (Trade) Dose Ordered Sig/[place] Route Start Time Stop Time Status Last Admin Dose Admin Lactated Ringer's 1,000 ml @ 15 mls/hr Q24H IV 12/03/16 06:00 12/04/16 05:59 12/03/16 10:15 15 MLS/HR Cefazolin Sodium (Ancef 2000mg/60 ml D5W) 60 ml @ 100 mls/hr PREOP IV 12/03/16 06:00 12/03/16 18:00 12/03/16 10:35 100 MLS/HR Amlodipine Besylate (Norvasc Tab) 5 mg QAM PO 12/04/16 09:00 01/03/17 08:59 Levothyroxine Sodium (Synthroid Tab) 150 mcg DAILYBB PO 12/04/16 06:00 01/03/17 05:59 Loratadine (Claritin Tab) 10 mg DAILY PO 12/04/16 09:00 01/03/17 08:59 Pantoprazole Sodium (Protonix Tab) 40 mg QAM PO 12/04/16 09:00 01/03/17 08:59 Simvastatin (Zocor Tab) 20 mg QPM PO 12/03/16 21:00 01/02/17 20:59 Acetaminophen/ Hydrocodone Bitart ([place] 5/325 Tab) 1 tab Q4 PRN PO 12/03/16 12:00 12/17/16 11:59 12/03/16 16:24 1 TAB Acetaminophen/ Hydrocodone Bitart ([place] 5/325 Tab) 2 tab Q4 PRN PO 12/03/16 12:00 12/17/16 11:59 Morphine Sulfate (MoRPHine SULFATE INJ) 2 mg Q4H PRN IV 12/03/16 12:00 12/17/16 11:59 Morphine Sulfate 4 mg 4 mg Q4H PRN IV 12/03/16 12:00 12/17/16 11:59 Promethazine HCl/ Sodium Chloride (Phenergan Inj/ Nss 50ml) 51 ml @ 204 mls/hr Q6H PRN IV 12/03/16 12:00 01/02/17 11:59 Ondansetron HCl 4 mg 4 mg Q6H PRN IV 12/03/16 12:00 01/02/17 11:59 Cefazolin Sodium 1000 mg/Dextrose 55 ml @ 100 mls/hr Q6 IV 12/03/16 18:00 12/13/16 17:59 Promethazine HCl/ Sodium Chloride (Phenergan Inj/ Nss 50ml) 50.5 ml @ 204 mls/hr Q6H PRN IV 12/03/16 12:45 01/02/17 12:44 Miscellaneous (Iv Fluids Completed) 1 ea PRN PRN N/A 12/03/16 13:45 12/03/17 13:44 Albuterol Sulfate (Ventolin 0.083% 2.5MG/3ML Neb) 2.5 mg Q6R PRN INH 12/03/16 14:30 01/02/17 14:29 Review of Systems Constitutional: No chills, No fever Eyes: No problem reported ENT: No problem reported Respiratory: No cough, No shortness of breath Cardiovascular: No chest pain, No palpitations Abdomen: No nausea, No pain, No vomiting Musculoskeletal: No joint pain Genitourinary - Female: No problem reported Neurologic: No problem reported Psychiatric: No problem reported Endocrine: No problem reported Hematologic / Lymphatic: No problem reported Integumentary: No problem reported Allergic / Immunologic: No problem reported Physical Exam Date Time Temp Pulse Resp B/P Pulse Ox O2 Delivery O2 Flow Rate FiO2 12/03/16 16:20 37.1 87 18 156/84 94 Room Air 12/03/16 15:30 37.1 87 18 159/72 92 Room Air 12/03/16 14:16 37.0 88 19 146/71 92 Room Air 12/03/16 13:50 88 16 141/59 93 Room Air 12/03/16 13:20 94 Room Air 12/03/16 13:20 37.0 16 130/68 94 Room Air 12/03/16 13:20 Room Air 12/03/16 12:49 87 20 159/77 96 Room Air 88 88 12/03/16 12:45 83 20 158/58 97 Nasal Cannula 2 85 12/03/16 12:39 85 20 152/61 98 Nasal Cannula 2 12/03/16 12:25 82 17 144/55 100 Mask 10 12/03/16 12:15 87 21 141/60 100 Mask 10 12/03/16 12:07 36.4 88 16 102/58 100 Mask 10 12/03/16 09:13 37.1 90 20 198/74 95 Room Air General Appearance: no apparent distress, + obese Head: normocephalic, atraumatic Eyes: normal inspection, EOMI, sclerae normal ENT: hearing grossly normal, pharynx normal Neck: supple, no adenopathy, no JVD, no carotid bruits, trachea midline Respiratory/Chest: lungs clear, normal breath sounds, no respiratory distress, no accessory muscle use Cardiovascular: regular rate, rhythm, no edema, no gallop, no murmur, normal peripheral pulses Abdomen/GI: normal bowel sounds, non tender, soft (morbidly obese with very large pannus) Genitourinary - Female: external genitalia normal Back: normal inspection Extremities/Musculoskelatal: no calf tenderness, no pedal edema Neurologic/Psych: alert, normal mood/affect, oriented x 3 Skin: normal color, warm/dry, no rash, + pertinent finding (left breast with dressing in place that is clean, dry, and intact) Laboratory Results Last 24 Hours Test 12/03/16 08:52 12/03/16 12:12 Bedside Glucose 129 mg/dl 124 mg/dl Assessment & Plan This patient is a 76-year-old female with history of stage I colon cancer, hypertension, asthma, allergies, osteoarthritis, GERD, hyperlipidemia, diabetes mellitus type 2, obstructive sleep apnea, hypothyroidism, and a more recent diagnosis of left-sided breast cancer. She is here for a left lumpectomy and we are consulted for medical management. Left-sided breast cancer status post lumpectomy-pathology result pending. Dr. Ochoa is the surgeon. -Postop management as per surgeon -Pain control -DVT prophylaxis as per surgery -Going home with antibiotics -To follow up with general surgery after pathology returns -Check CBC and PRP in the morning Hypertension- is mildly hypertensive now postop. -Continue amlodipine -Agree with holding Benicar HCT in case of decreasing renal function postop, but could probably restart tomorrow upon discharge Hypothyroidism-stable -Continue home levothyroxine Asthma, allergies, obstructive sleep apnea-all stable -Nebulizers with albuterol when necessary -Continue home inhaled corticosteroid and inhaled nasal corticosteroid upon discharge Diabetes mellitus type 2-hemoglobin A1c was 6.0% in July 2016, well- controlled -Agree with holding metformin while inpatient -We'll add on Accu-Cheks and sliding scale insulin GERD-stable -Continue PPI Obstructive sleep apnea-is central in nature and CPAP does not help her, she sleeps on her side. DVT prophylaxis: SCDs Disposition: To home most likely tomorrow Additional Copies To Eduardo Swain D.O.Int.Med.
[2016-12-03] MEDS: CEFAZOLIN IV 1,000 MG in DEXTROSE 5% 50ML 50 ML IV SCH ×2 (20:33→23:56)
[2016-12-03] MEDS: INSULIN ASPART 100 UNITS/ML 3 ML PEN SC SCH (20:50)
[2016-12-03] MEDS ORDERED: SIMVASTATIN 20 MG TAB PO SCH (21:00)
[2016-12-04] MEDS: HYDROCODONE/ACETAMOPHEN 5/325MG TAB PO PRN ×4 (00:47→13:10)
[2016-12-04 03:11] VITALS: BP 130/51; PULSE 71; TEMP 36.8; O2SAT 95
[2016-12-04] MEDS: CEFAZOLIN IV 1,000 MG in DEXTROSE 5% 50ML 50 ML IV SCH ×2 (05:50→11:57)
[2016-12-04] MEDS ORDERED: LEVOTHYROXINE 150 MCG TAB PO SCH (06:00)
--- NOTE | 2016-12-04 07:19 | DISCHARGE SUMMARY ---
PRINCIPAL DIAGNOSIS: Left breast cancer. HISTORY OF PRESENT ILLNESS: The patient underwent needle localization, left partial mastectomy with sentinel lymph node biopsy. HOSPITAL COURSE: The patient was brought into the hospital on 12/03/2016 when she was taken to the operating room where she underwent left partial mastectomy with sentinel lymph node biopsy. She has done very well overnight and is felt stable for discharge home today to be followed in the surgical clinic next week. She has no drains in place.
[2016-12-04 07:31] VITALS: BP 147/75; PULSE 67; TEMP 36.6; O2SAT 96
[2016-12-04 08:02] LABS: ESTIMATED AVERAGE GLUCOSE 128 mg/dl; HA1C FLAG Normal (Normal)
[2016-12-04] MEDS: INSULIN ASPART 100 UNITS/ML 3 ML PEN SC SCH ×2 (08:44→12:00)
--- NOTE | 2016-12-04 08:45 | Anesthesiology Progress Note ---
Anesthesia Post Op Note Date & Time Dec 04, 2016 at 08:45 Vital Signs Pain Intensity: 2.5 Vital Signs Past 12 Hours Date Time Temp Pulse Resp B/P Pulse Ox O2 Delivery O2 Flow Rate FiO2 12/04/16 07:31 36.6 67 16 147/75 96 Room Air 12/04/16 03:11 36.8 71 18 130/51 95 Room Air 12/03/16 23:45 Room Air 12/03/16 23:04 37.0 80 17 154/83 95 Room Air Notes Mental Status: alert / awake / arousable, participated in evaluation Pt Amnestic to Procedure: Yes Nausea / Vomiting: adequately controlled Pain: adequately controlled Airway Patency, RR, SpO2: stable & adequate BP & HR: stable & adequate Hydration State: stable & adequate Anesthetic Complications: no major complications apparent
[2016-12-04] MEDS ORDERED: PANTOprazole SOD 40 MG TAB PO SCH (09:00)
[2016-12-04] MEDS ORDERED: LORATADINE 10 MG TAB PO SCH (09:00)
[2016-12-04] MEDS ORDERED: AMLODIPINE BESYLATE 5 MG TAB PO SCH (09:00)
[2016-12-04 13:23] VITALS: BP 147/75; PULSE 67; TEMP 36.6; O2SAT 96
--- NOTE | 2016-12-05 08:35 | MAMMOGRAPHY REPORT ---
SPECIMEN LEFT BREAST: 12/03/2016 CLINICAL HISTORY: Lumpectomy specimen in the left breast. Please refer to the report from left breast image guided needle localization performed at the same t evelyn for full detail. IMPRESSION: SPECIMEN Please refer to the report from left breast image guided needle localization performed at the same t evelyn for full detail. Lucy Valencia M.D. ay/:12/03/2016 10:21:43 Check Writer: Stephania SANDHU(Gabbi)(Gavin), [facility]
[2017-02-11] MEDS ORDERED: LETR2TAB PO (15:09)
== END 2016-12-04 14:29 | disposition home or self-care (01) ==
LOC: ENRESERVDT → ENRESERVTM → C.ACU 07:39 → C.MSW 12:01
PROVIDERS: ADMIT Surgery; ATTEND Surgery
DX: C50.912 Malignant neoplasm of unspecified site of left female breast (principal); J45.909 Unspecified asthma, uncomplicated; I10 Essential (primary) hypertension; M19.90 Unspecified osteoarthritis, unspecified site; G47.33 Obstructive sleep apnea (adult) (pediatric); E11.9 Type 2 diabetes mellitus without complications; E03.9 Hypothyroidism, unspecified; K21.9 Gastro-esophageal reflux disease without esophagitis; Z85.038 Personal history of other malignant neoplasm of large intestine

== ENCOUNTER → 2017-01-29 | Outpatient (CLI) | payer BC ==
[~2017-01-29] MED LIST changes: +ACET1TAB84 PO; -BUPIVACAINE 0.5 % 5 MG/1 ML MPF 30ML VIAL ONE; -CEFAZOLIN 2000 MG/60 ML D5W IV SCH; +CLR10 PO; -ISOSULFAN BLUE 10 MG/ML VIAL 5 ML ONE; -LACTATED RINGER'S 1000ML 1,000 ML IV SCH; +LETR2TAB PO; -PREMARIN EXT
[2017-01-29 14:43] LABS: BASO % 0.4 %; BASO ABS # 0.03 K/uL (0-0.2); COMPLETE YES; EOS % 1.5 %; HEMATOCRIT 42.1 % (37-47); IG% 0.4 %; LYMPH % 29.5 %; LYMPH ABS # 2.21 K/uL (1.2-3.4); MEAN CELL VOLUME 88.3 fL (80-100); MEAN CORPUSCULAR HEMOGLOBIN 28.7 pg (25-34); MEAN CORPUSCULAR HGB CONC 32.5 g/dl (32-36); MEAN PLATELET VOLUME 10.6 fL (7.4-10.4); MONO % 15.1 %; NEUT % 53.1 %; PLATELET COUNT 274 K/uL (130-400); RED BLOOD COUNT 4.77 M/uL (4.2-5.4); WHITE BLOOD COUNT 7.48 K/uL (4.8-10.8)
[2017-01-29 14:48] LABS: URINE APPEARANCE CLEAR (CLEAR); URINE BILIRUBIN NEG (NEG); URINE COLOR DK YELLOW; URINE EPITHELIAL CELL AUTO >30 /lpf (0-5); URINE NITRITE NEG (NEG); URINE SPECIFIC GRAVITY 1.024 (1.000-1.030); UROBILINOGEN NEG (NEG)
[2017-01-29 14:49] LABS: MANUAL MICROSCOPIC REQUIRED? NO; REVIEW REQ? YES
[2017-01-29 15:17] LABS: ALT/SGPT 32 U/L (12-78); AST/SGOT 17 U/L (15-37); BLOOD UREA NITROGEN 17 mg/dl (7-18); BUN/CREATININE RATIO 21.6 (10-20); CALCIUM 9.5 mg/dl (8.5-10.1); CARBON DIOXIDE 27 mmol/L (21-32); CHLORIDE 106 mmol/L (98-107); CREATININE 0.81 mg/dl (0.60-1.20); GLUCOSE 109 mg/dl (70-99); POTASSIUM 4.3 mmol/L (3.5-5.1); SODIUM 140 mmol/L (136-145)
[2017-01-29 15:22] LABS: RATIO 6.2 mcg/mg (0-30.0)
[2017-01-29 15:28] LABS: ALB/GLOB RATIO 1.1 (0.9-2); ALKALINE PHOSPHATASE 66 U/L (45-117); CHOLESTEROL 134 mg/dl (0-200); CHOLESTEROL/HDL RATIO 3.9; HDL CHOLESTEROL 34 mg/dl; TRIGLYCERIDES 421 mg/dl (0-150)
[2017-01-30 06:45] LABS: ESTIMATED AVERAGE GLUCOSE 128 mg/dl; HA1C FLAG Normal (Normal)
== END | disposition home or self-care (01) ==
LOC: C.LABBC 11:41
PROVIDERS: ATTEND Family Medicine
DX: E11.9 Type 2 diabetes mellitus without complications (principal); R30.0 Dysuria; E03.9 Hypothyroidism, unspecified; A08.4 Viral intestinal infection, unspecified; Z85.038 Personal history of other malignant neoplasm of large intestine; E78.5 Hyperlipidemia, unspecified

== ENCOUNTER → 2017-02-11 | Outpatient (CLI) | payer BC ==
[2017-02-11 14:54] VITALS: BP 117/68; PULSE 87; TEMP 36.9; O2SAT 94
--- NOTE | 2017-02-11 16:53 | Radiation Oncology Follow-Up ---
Radiation Oncology Follow-Up Date of Visit Feb 11, 2017. Reason For Visit One-month follow-up and cancer survivorship care plan Radiation Completion Date finished 01-13-2017 using acceleratrd partial breast irradiation Diagnosis (1) Breast cancer Histology Subtype: ductal Stage: l (A) Permanent Comment: Abnormal left breast mammogram Status post stereotactic biopsy 10/28/2016 finding of invasive ductal carcinoma grade 1 Estrogen receptor positive, progesterone receptor positive, HER-2/yong negative Status post needle localization lumpectomy with sentinel lymph node biopsy 12/03 No residual tumor Stage pT1a [id number] Status post completion of radiation therapy 01/13/2017 received 3850 cGy utilizing accelerated partial breast irradiation. Last Edited By: Tracy Anand on January 30, 2017 10:19 History of Present Illness Ms. Gerardo is a 76-year-old female who has a distant family history of breast cancer. The patient's aunt was diagnosed with breast cancer. She was treated with bilateral mastectomy and at age 61. She does not know if she from her breast cancer. She also has a niece who was diagnosed with breast cancer at age 26 and treated and is now alive and well in her 50s. The patient was being followed with serial screening mammograms. On 10/08/2016 patient underwent bilateral digital screening mammograms. There were new grouping of microcalcifications noted in the upper outer middle one third of the left breast.'s by magnification views were recommended. Therefore on every 2016 patient underwent a unilateral left digital diagnostic mammogram. This identified a new 3.5 mm cluster of pleomorphic microcalcifications in the upper outer middle one third of the left breast. No obvious associated mass, asymmetry or architectural distortion was noted. The microcalcifications were felt to be indeterminate and tissue sampling was recommended. On 10/28/2016 patient underwent a stereotactic biopsy of the upper outer quadrant of the left breast. This revealed an invasive ductal carcinoma, Jaiden grade 1 of 3. Estrogen receptors were positive (100%, strong intensity, H-score 300). Progesterone receptors were positive (95%, strong intensity, H-score 285). HER-2/yong overexpression was negative by immunohistochemistry and confirmed negative by FISH analysis. The Ki-67 proliferation index was 7% (low). Intermediate grade ductal carcinoma in situ with microcalcifications were appreciated. Case: [id number]. Patient was seen by Dr. Alex Ochoa who discussed definitive treatment options. The patient opted to proceed with breast conserving therapy. Therefore on she underwent a left partial mastectomy and sentinel node biopsy. The sentinel node was benign with no tumor seen. The lumpectomy specimen showed chronic changes consistent with the prior biopsy but no residual invasive or in situ carcinoma was seen. Case: [id number]. The final AJCC staging is therefore pT1a pN0(sn-), ER positive, NV positive and HER-2/yong negative. Patient was seen by Dr. Lopes to discuss the systemic adjuvant treatment options. He did not feel the patient required consideration of adjuvant chemotherapy. He didn't feel the patient would benefit from a course of aromatase inhibitor therapy for 5 years to start after the completion of the radiation. Options of treatment were reviewed with her. She underwent a CT simulation was found to be a candidate for accelerated partial breast irradiation. This was completed on 01/13/2017. She received 3850 cGy. Interim History She's been doing well over the past month. She denies any difficulty with skin irritation. She has noted no masses or tenderness and no change of the axilla. She did have an issue with nausea. She saw her primary care provider and was diagnosed with a viral illness. This all occurred around the same time as the initiation of Femara. She was concerned that the nausea could be related to the Femara. She periodically held the pill for one day and there was no difference in the feeling of nausea. This is now resolved and she continues to take the Femara. She has had minimal hot flashes. She is not complaining of any joint discomforts. She had mild fatigue and this is improved. She also had a dry cough and that also has improved. Allergies Coded Allergies: Hylan G-F 20 (Verified Allergy, Severe, KNEE SWELLING, 12/03/16) BECKY Inhibitors (Verified Allergy, Unknown, COUGH, 12/03/16) Cefaclor (Verified Allergy, Unknown, SICK, 12/03/16) Influenza Vaccines (Verified Allergy, Unknown, NEURO RX, 12/03/16) Home Medications Scheduled Acetaminophen (Tylenol Arthritis Ext Rel), 650 MG PO BID Amlodipine (Norvasc), 5 MG PO QAM Aspirin (Aspirin Chewable), 81 MG PO QAM Beclomethasone Dip (Qvar Hfa 80 Mcg *), 2 PUFF INH BID Cholecalciferol (Vitamin D3), 1 TAB PO TID Coenzyme Q10 (Ubidecarenone) (Coq10), 1 CAP PO QAM Cyclosporine (Ophth) (Restasis), 1 DROP OPB BID Fish Oil ([place]-3), 1 CAP PO TID Fctekbrhigf-Xwvqszxutkc-Wxf C- (Glucosamine Chondroitin), 1 TAB PO BID Letrozole (Femara), 2.5 MG PO DAILYBB Levothyroxine Sodium (Levothyroxine Sodium), 1 TAB PO QAM Loratadine (Claritin), 10 MG PO DAILY Metformin Hcl (Glucophage), 1,000 MG PO BID Mometasone Furoate (Nasonex), 1 SPRAY SHASHI BID Multivitamin (Multivitamin), 1 TAB PO QAM Olmesartan/Hctz (Benicar Hct 40/12.5), 1 TAB PO QAM Pantoprazole (Protonix), 40 MG PO QAM Ranitidine Hcl (Zantac), 150 MG PO HS Simvastatin (Zocor), 20 MG PO QPM Scheduled PRN Albuterol Sulfate (Proair Respiclick), 2 PUFFS INH Q4H PRN for Shortness of Breath Review of Systems Gastrointestinal: Symptoms: Nausea GI Comments: " some nausea - getting better " Oral: Symptoms: No Problems Respiratory: Symptoms: Dry Cough Other Respiratory: "cough getting better " Urinary: Symptoms: Nocturia Comments: nocturia times 1 Skin: Symptoms: No Problems Breast: Right Upper Arm Measurement: 37.5 Right Mid Arm Measurement: 26.0 Right Wrist Measurement: 16.0 Left Upper Arm Measurement: 38.5 Left Mid Arm Measurement: 25.5 Left Wrist Measurement: 16.3 Arm Dominence: Right Patient Cosmetic Evaluation: Excellent Staff Cosmetic Evalaluation: Excellent Physical Exam Vital Signs Date Time Temp Pulse Resp B/P (MAP) Pulse Ox O2 Delivery O2 Flow Rate FiO2 02/11/17 14:54 36.9 87 20 117/68 94 Pain: Side: Bilateral Patient Pain Scale: 0 - 10 Initial Pain Intensity: 0.0 Fatigue: None General Appearance: no apparent distress Eyes: normal inspection, EOMI ENT: normal ENT inspection, hearing grossly normal Neck: no adenopathy, thyroid normal Respiratory/Chest: lungs clear, no respiratory distress, no accessory muscle use Breast: Breast examination reveals well-healed incisions of the left breast. There are no masses or tenderness and no axillary adenopathy. There is very minimal fibrocystic tissue in the area of the incision. There is no erythema or edema. There is no wet or dry desquamation. She has no skin retractions or nipple changes. Using the Belding score cosmesis she has a excellent outcome. The right breast showed no masses or tenderness and no axillary adenopathy. Cardiovascular: regular rate, rhythm, no gallop, no murmur Extremities: no pedal edema Neurologic/Psychiatric: no motor/sensory deficits, alert, normal mood/affect Skin: warm/dry Lymphatic: no adenopathy Laboratory Studies Test 12/04/16 07:05 12/04/16 08:11 12/04/16 12:09 01/29/17 11:44 Estimated Average Glucose 128 mg/dl 128 mg/dl Hemoglobin A1c 6.1 % (4.5-5.6) 6.1 % (4.5-5.6) Hepatitis C Antibody Screen NEG (NEG) POC Glucose 102 mg/dl (70-90) 96 mg/dl (70-90) White Blood Count 7.48 K/uL (4.8-10.8) Red Blood Count 4.77 M/uL (4.2-5.4) Hemoglobin 13.7 g/dL (12.0-16.0) Hematocrit 42.1 % (37-47) Mean Corpuscular Volume 88.3 fL (80-100) Mean Corpuscular Hemoglobin 28.7 pg (25-34) Mean Corpuscular Hemoglobin Concent 32.5 g/dl (32-36) Platelet Count 274 K/uL (130-400) Mean Platelet Volume 10.6 fL (7.4-10.4) Neutrophils (%) (Auto) 53.1 % Lymphocytes (%) (Auto) 29.5 % Monocytes (%) (Auto) 15.1 % Eosinophils (%) (Auto) 1.5 % Basophils (%) (Auto) 0.4 % Neutrophils # (Auto) 3.97 K/uL (1.4-6.5) Lymphocytes # (Auto) 2.21 K/uL (1.2-3.4) Monocytes # (Auto) 1.13 K/uL (0.11-0.59) Eosinophils # (Auto) 0.11 K/uL (0-0.5) Basophils # (Auto) 0.03 K/uL (0-0.2) RDW Standard Deviation 49.6 fL (36.4-46.3) RDW Coefficient of Variation 15.3 % (11.5-14.5) Immature Granulocyte % (Auto) 0.4 % Immature Granulocyte # (Auto) 0.03 K/uL (0.00-0.02) Sodium Level 140 mmol/L (136-145) Potassium Level 4.3 mmol/L (3.5-5.1) Chloride Level 106 mmol/L (98-107) Carbon Dioxide Level 27 mmol/L (21-32) Anion Gap 7.0 mmol/L (3-11) Blood Urea Nitrogen 17 mg/dl (7-18) Creatinine 0.81 mg/dl (0.60-1.20) Estimated GFR () 82.3 Estimated GFR (Non- 71.0 BUN/Creatinine Ratio 21.6 (10-20) Random Glucose 109 mg/dl (70-99) Calcium Level 9.5 mg/dl (8.5-10.1) Total Bilirubin 0.6 mg/dl (0.2-1) Aspartate Amino Transferase (AST) 17 U/L (15-37) Alanine Aminotransferase (ALT) 32 U/L (12-78) Alkaline Phosphatase 66 U/L (45-117) Total Protein 7.3 gm/dl (6.4-8.2) Albumin 3.9 gm/dl (3.4-5.0) Globulin 3.4 gm/dl (2.5-4.0) Albumin/Globulin Ratio 1.1 (0.9-2) Triglycerides Level 421 mg/dl (0-150) Cholesterol Level 134 mg/dl (0-200) HDL Cholesterol 34 mg/dl LDL Cholesterol, Calculated mg/dl VLDL Cholesterol, Calculated mg/dl Cholesterol/HDL Ratio 3.9 Carcinoembryonic Antigen 2.3 ng/ml (0-2.5) Thyroid Stimulating Hormone (TSH) 1.760 uIu/ml (0.300-4.500) Test 01/29/17 11:59 Urine Color DK YELLOW Urine Appearance CLEAR (CLEAR) Urine pH 6.0 (4.5-7.5) Urine Specific [place] 1.024 (1.000-1.030) Urine Protein NEG (NEG) Urine Glucose (UA) NEG (NEG) Urine Ketones TRACE (NEG) Urine Occult Blood NEG (NEG) Urine Nitrite NEG (NEG) Urine Bilirubin NEG (NEG) Urine Urobilinogen NEG (NEG) Urine Leukocyte Esterase NEG (NEG) Urine WBC (Auto) 5-10 /hpf (0-5) Urine RBC (Auto) 0-4 /hpf (0-4) Urine Hyaline Casts (Auto) 1-5 /lpf (0-5) Urine Epithelial Cells (Auto) >30 /lpf (0-5) Urine Bacteria (Auto) NEG (NEG) Urine Yeast (Auto) (NONE PRSENT) Urine Random Creatinine 140.0 mg/dl Urine Random Microalbumin 8.6 mg/L Urine Microalbumin/Creatinine Ratio 6.2 mcg/mg (0-30.0) Assessment & Plan Plan: Continue regular follow-up with her primary care physician, and medical oncology. She continues on the Femara. Today we completed a cancer survivorship care plan. A copy of the document was given to the patient. She was scheduled for digital diagnostic mammograms. She'll have a left breast mammogram in 2 months. She'll then have bilateral mammography in 8 months. We asked her to return to our office in 6 months. She may call if she has any questions or concerns in the interim. Total Time In Follow-Up I spent 20 minutes speaking to the patient and performing examination. I spent 20 minutes reviewing information, preparing the survivorship document, and completing this note. Copy To Eduardo Swain D.O.Int.Med.; Alex Ochoa M.D.; Sharee Mccarthy M.D.; Teddy Wagner MD Problem Qualifiers (1) Breast cancer: Breast location: upper outer quadrant of breast Estrogen receptor status: positive Patient sex: female Laterality: left Qualified Codes: C50.412 - Malignant neoplasm of upper-outer quadrant of left female breast; Z17.0 - Estrogen receptor positive status [ER+]
== END | disposition home or self-care (01) ==
LOC: C.ONC 14:47
PROVIDERS: ATTEND Physician Assistant Medical
DX: Z08 Encounter for follow-up examination after completed treatment for malignant neoplasm (principal); Z92.3 Personal history of irradiation; Z85.3 Personal history of malignant neoplasm of breast

== ENCOUNTER → 2017-02-17 | Outpatient (CLI) | payer BC ==
[2017-02-17 14:18] LABS: BASO % 0.5 %; BASO ABS # 0.03 K/uL (0-0.2); COMPLETE YES; EOS % 2.2 %; HEMATOCRIT 40.8 % (37-47); IG% 0.4 %; LYMPH % 40.6 %; LYMPH ABS # 2.24 K/uL (1.2-3.4); MEAN CELL VOLUME 89.3 fL (80-100); MEAN CORPUSCULAR HEMOGLOBIN 29.5 pg (25-34); MEAN CORPUSCULAR HGB CONC 33.1 g/dl (32-36); MEAN PLATELET VOLUME 10.6 fL (7.4-10.4); MONO % 15.8 %; NEUT % 40.5 %; PLATELET COUNT 237 K/uL (130-400); RED BLOOD COUNT 4.57 M/uL (4.2-5.4); WHITE BLOOD COUNT 5.52 K/uL (4.8-10.8)
[2017-02-17 14:23] LABS: ALT/SGPT 40 U/L (12-78); AST/SGOT 31 U/L (15-37); BLOOD UREA NITROGEN 18 mg/dl (7-18); BUN/CREATININE RATIO 20.1 (10-20); CALCIUM 9.4 mg/dl (8.5-10.1); CARBON DIOXIDE 27 mmol/L (21-32); CHLORIDE 106 mmol/L (98-107); CREATININE 0.88 mg/dl (0.60-1.20); GLUCOSE 122 mg/dl (70-99); POTASSIUM 4.5 mmol/L (3.5-5.1); SODIUM 142 mmol/L (136-145)
[2017-02-17 14:25] LABS: ALB/GLOB RATIO 1.1 (0.9-2); ALKALINE PHOSPHATASE 63 U/L (45-117)
== END | disposition home or self-care (01) ==
LOC: C.LABBC 11:11
PROVIDERS: ATTEND Internal Medicine Hematology & Oncology
DX: C50.412 Malignant neoplasm of upper-outer quadrant of left female breast (principal)

== ENCOUNTER → 2017-03-11 | Outpatient (CLI) | payer BC ==
--- NOTE | 2017-03-11 12:32 | MAMMOGRAPHY REPORT ---
UNILATERAL LEFT DIGITAL DIAGNOSTIC MAMMOGRAM TOMOSYNTHESIS WITH CAD AND TARGETED LEFT ULTRASOUND: 03/11 CLINICAL HISTORY: History of left breast cancer status post lumpectomy November 2016 as well as radiatio n therapy. The patient reports a new palpable lump in her left breast for approximately one week, wh ich has decreased in size since she first felt it. She denies any pain or associated skin erythema a t the site of the lump. TECHNIQUE: Breast tomosynthesis in addition to standard 2D mammography was performed. Current study was also evaluated with a Computer Aided Detection (CAD) system. Left CC and MLO 2-D and tomosynthes is images and spot magnification left CC and ML views of the lumpectomy bed were obtained. COMPARISON: Comparison is made to exams dated: 10/28/2016 stereotactic biopsy, 10/28/2016 mammogram, mammogram, 10/08/2016 mammogram, 10/02/2015 mammogram, and 09/28/2014 mammogram - [facility]. BREAST COMPOSITION: There are scattered areas of fibroglandular density in the left breast. FINDINGS: A triangle marker bianchi the site of the palpable lump in the left upper outer quadrant. T here are new post surgical changes in the left upper outer quadrant from prior lumpectomy, including new architectural distortion and surgical clips at the lumpectomy bed. There is an oval 6.0 x 4.4 cm mass at the lumpectomy bed, for which ultrasound was performed. No suspicious clusters of microcalc ifications are noted at the lumpectomy bed. The remainder of the left breast is stable compared to prior exams, without suspicious masses, calcif ications, or areas of architectural distortion noted. Targeted ultrasound was performed of the area of the palpable lump pointed out by the patient, in the left breast at approximately 12:30 to 1:00 at the surgical bed. At the site of the palpable lump th ere is a large hypoechoic fluid collection which contains internal septations, which is too large to accurately measure on ultrasound but measures at least 5.0 x 3.0 x 4.1 cm. This corresponds with the mammographic mass and has the appearance of a chronic postsurgical fluid collection such as a seroma /hematoma. IMPRESSION: ACR-BI-RADS CATEGORY 3: PROBABLY BENIGN, TARGETED ULTRASOUND ACR-BI-RADS CATEGORY 3: PRO BABLY BENIGN Large 6 cm fluid collection at the lumpectomy bed in the left 12:30 to 1:00 breast, which corresponds with the palpable lump felt by the patient. The mass likely represents a postsurgical fluid collect ion such as a chronic seroma/hematoma. Recommend bilateral diagnostic mammograms in 6 months, to ree valuate the left breast postsurgical changes and fluid collection and for routine mammography of the right breast. Also recommend clinical follow-up for the palpable lump. The patient has been verbally notified of the results. Approximately 10% of breast cancers are not detected with mammography. A negative mammographic report should not delay biopsy if a clinically suggestive mass is present. Liset Pak M.D. ah/:03/11/2017 10:51:38 Rigging Up Man: Juli SANDHU(Gabbi)(Gavin), [facility] letter sent: Personal History 3 BI-RADS Code: ACR-BI-RADS Category 3: Probably Benign Ultrasound BI-RADS: ACR-BI-RADS Category 3: Pr obably Benign
== END | disposition home or self-care (01) ==
LOC: C.MAMM 09:57
PROVIDERS: ATTEND Surgery
DX: N63 Unspecified lump in breast (principal)

== ENCOUNTER → 2017-03-17 | Outpatient (CLI) | payer BC ==
[2017-03-17 13:17] LABS: BASO % 0.5 %; BASO ABS # 0.03 K/uL (0-0.2); COMPLETE YES; EOS % 1.2 %; HEMATOCRIT 40.8 % (37-47); IG% 0.5 %; LYMPH % 38.3 %; LYMPH ABS # 2.29 K/uL (1.2-3.4); MEAN CELL VOLUME 89.3 fL (80-100); MEAN CORPUSCULAR HEMOGLOBIN 30.6 pg (25-34); MEAN CORPUSCULAR HGB CONC 34.3 g/dl (32-36); MONO % 13.9 %; NEUT % 45.6 %; PLATELET COUNT 243 K/uL (130-400); RED BLOOD COUNT 4.57 M/uL (4.2-5.4); WHITE BLOOD COUNT 5.98 K/uL (4.8-10.8)
[2017-03-17 13:36] LABS: ALT/SGPT 39 U/L (12-78); BLOOD UREA NITROGEN 21 mg/dl (7-18); BUN/CREATININE RATIO 22.5 (10-20); CALCIUM 10.1 mg/dl (8.5-10.1); CARBON DIOXIDE 26 mmol/L (21-32); CHLORIDE 106 mmol/L (98-107); CREATININE 0.91 mg/dl (0.60-1.20); GLUCOSE 127 mg/dl (70-99); POTASSIUM 4.2 mmol/L (3.5-5.1); SODIUM 140 mmol/L (136-145)
[2017-03-17 13:39] LABS: ALB/GLOB RATIO 1.1 (0.9-2); ALKALINE PHOSPHATASE 62 U/L (45-117); AST/SGOT 24 U/L (15-37)
== END | disposition home or self-care (01) ==
LOC: C.LABBC 10:08
PROVIDERS: ATTEND Internal Medicine Hematology & Oncology
DX: C50.412 Malignant neoplasm of upper-outer quadrant of left female breast (principal)

== ENCOUNTER → 2017-04-07 | Outpatient (CLI) | payer BC ==
[~2017-04-07] MED LIST changes: +OPTIRAY 320 IV PRN
--- NOTE | 2017-04-07 15:16 | DIAGNOSTIC IMAGING REPORT ---
ABDOMEN AND PELVIS CT WITH IV AND ORAL CONTRAST CT DOSE: 1650.40 mGy.cm HISTORY: C18.2 Carcinoma of ascending colon. Carcinoma surveillance. 6 mon TECHNIQUE: Multiaxial CT images of the abdomen and pelvis were performed following the use of intravenous and oral contrast. A dose lowering technique was utilized adhering to the principles of ALARA. COMPARISON STUDY: Abdomen and pelvis CT 04/08/2016. FINDINGS: Stable subcentimeter bilateral pulmonary nodules with the largest in the right lower lobe measuring 6 mm. No pneumoperitoneum. No pneumatosis. No suspicious lytic or blastic osseous lesions. Fatty changes within the liver. Prior cholecystectomy. No hepatic or splenic masses. Normal pancreas. No retroperitoneal lymphadenopathy. No hydronephrosis. Small bilateral renal hypodense lesions are too small to characterize but remain stable. No retroperitoneal lymphadenopathy. Small diverticulum at the third portion of the duodenum. No change in the fat containing left periumbilical hernia. Normal bladder. The uterus is surgically absent. Anastomotic suture material at the sigmoid colon. A few colonic diverticula. No bowel wall thickening or obstruction. Stable small scarlike density along the right pelvic sidewall. IMPRESSION: 1. No evidence for metastatic disease within the abdomen or pelvis. 2. Colonic diverticulosis. 3. Stable fat-containing periumbilical hernia. 4. Stable bilateral pulmonary nodules. Electronically signed by: Tor Mcgowan M.D. 04/07/2017 3:15 PM Dictated Date/Time: 04/07/2017 3:08 PM
== END | disposition home or self-care (01) ==
LOC: C.CTS 12:34
PROVIDERS: ATTEND Family Medicine
DX: C18.2 Malignant neoplasm of ascending colon (principal); K57.30 Diverticulosis of large intestine without perforation or abscess without bleeding

== ENCOUNTER → 2017-04-09 | Outpatient (CLI) | payer BC ==
[~2017-04-09] MED LIST changes: -OPTIRAY 320 IV PRN
[2017-04-09 13:36] LABS: BLOOD UREA NITROGEN 18 mg/dl (7-18); CREATININE 0.87 mg/dl (0.60-1.20)
== END | disposition home or self-care (01) ==
LOC: C.LABBC 10:29
PROVIDERS: ATTEND Family Medicine
DX: E11.9 Type 2 diabetes mellitus without complications (principal); M19.90 Unspecified osteoarthritis, unspecified site

== ENCOUNTER → 2017-05-25 | Outpatient (CLI) | payer BC ==
[~2017-05-25] MED LIST changes: -LETR2TAB PO
== END | disposition home or self-care (01) ==
LOC: C.RDSM 11:41
PROVIDERS: ATTEND Physical Medicine & Rehabilitation Sports Medicine
DX: M17.0 Bilateral primary osteoarthritis of knee (principal)

== ENCOUNTER → 2017-06-02 | Day surgery (SDC) | payer BC ==
[2017-05-21 13:05] VITALS: Ht 166.4 cm; Wt 108.2 kg
[~2017-06-02] VITALS: Ht 166.4 cm; Wt 108.2 kg
[~2017-06-02] MED LIST changes: +PROPOFOL IV EMULSION 10 MG/ML 20 ML VIAL IV ONE
[2017-06-02 08:19] VITALS: TEMP 37.2
--- NOTE | 2017-06-02 08:43 | Endo History and Physical ---
History & Physical Date of Service: Jun 02, 2017. Chief Complaint: history of malignant polyp Referring Physician: Dr. Estrellita Herrera History of Present Illness 77 yo CF who presents for colonoscopy secondary to history of malignant polyp. Past Medical History Diabetes, Arthritis, Asthma, Gastrointestinal Disorder, Reflux, Cancer, High Cholesterol, Sleep Apnea, Hypertension, Thyroid Disease Past Surgical History Hx Cardiac Surgery: No Hx Internal Defibrillator: No Hx Pacemaker: No Hx Abdominal Surgery: Yes (SIGMOIDECTOMY, JEANMARIE, C-SECTIONS X4, GREGORY BSO, MULTIPLE D&C) Hx of Implantable Prosthesis: No Hx Post-Op Nausea and Vomiting: No Hx Cancer Surgery: Yes (SKIN CA - RESECTED, LT BREAST LUMPECTOMY, COLON POLYP REMOVAL) Hx Thoracic Surgery: No Hx Orthopedic: No Hx Urinary Tract Surgery: No Family History Esophogeal CA Social History Smoking Status: Never Smoker Hx Substance Use: No Hx Alcohol Use: No Allergies Coded Allergies: Hylan G-F 20 (Verified Allergy, Severe, KNEE SWELLING, 05/21/17) BECKY Inhibitors (Verified Allergy, Unknown, COUGH, 05/21/17) Cefaclor (Verified Allergy, Unknown, SICK, 05/21/17) Influenza Vaccines (Verified Allergy, Unknown, NEURO RX, 05/21/17) Letrozole (Verified Adverse Reaction, Unknown, LEG PAIN, 05/21/17) Levofloxacin (Verified Adverse Reaction, Unknown, "RUPTURED HAMSTRING TENDON", 05/21/17) Current Medications Reported Home Medications Medications Dose Route/Sig Max Daily Dose Days Date Category Dose Instructions Claritin (Loratadine) 10 Mg Tab 10 Mg PO QAM 12/03/16 Reported Tylenol Arthritis Ext Rel (Acetaminophen) 650 Mg Cplt 650 Mg PO BID 12/03/16 Reported "ALWAYS TAKE ONE IN MORNING, MAYBE AT NIGHT IF I NEED IT" Proair Respiclick (Albuterol Sulfate) 108 Mcg/Act Aer 2 Puffs INH Q4H PRN 11/07/16 Reported Coq10 (Coenzyme Q10 (Ubidecarenone)) 100 Mg Cap 1 Cap PO QAM 11/07/16 Reported Vitamin D3 (Cholecalciferol) 2,000 Unit Tab 1 Tab PO TID 11/07/16 Reported Glucosamine Chondroitin (Njitaaeeohp-Ugktxogvegm-Ddu C-) 1 Tab Tab 1 Tab PO BID 11/07/16 Reported Restasis (Cyclosporine (Ophth)) 0.05 % Emu 1 Drop OPB BID 11/07/16 Reported Norvasc (Amlodipine Besylate) 5 Mg Tab 5 Mg PO QAM 11/07/16 Reported Multivitamin (Multivitamins) Tab 1 Tab PO QAM 12/24/15 Reported Aspirin Chewable (Aspirin) 81 Mg Chew 81 Mg PO QAM 12/24/15 Reported [place]-3 (Fish Oil) 1 Ea Cap 1 Cap PO TID 12/24/15 Reported Protonix (Pantoprazole Sodium) 40 Mg Tab 40 Mg PO QAM 12/24/15 Reported Zantac (Ranitidine HCl) 150 Mg Tab 150 Mg PO HS 12/24/15 Reported Glucophage (Metformin Hcl) 1,000 Mg Tab 1,000 Mg PO BID 12/24/15 Reported Levothyroxine Sodium 150 Mcg Tab 1 Tab PO QAM 12/24/15 Reported Benicar Hct 40/12.5 (Olmesartan/HCTZ) Tab 1 Tab PO QAM 12/24/15 Reported Zocor (Simvastatin) 20 Mg Tab 20 Mg PO QPM 05/10/07 Reported Nasonex (Mometasone Furoate) Alton 1 Alton SHASHI BID 05/10/07 Reported Qvar Hfa 80 Mcg * (Beclomethasone Dipropionate) Inh 2 Puff INH BID 05/10/07 Reported Vital Signs Weight (Kilograms): 108.18 Height (Feet): 5 Height (Inches): 5.5 Date Time Temp Pulse Resp B/P (MAP) Pulse Ox O2 Delivery O2 Flow Rate FiO2 06/02/17 08:19 37.2 78 20 172/68 (102) 95 Room Air Physical Exam General Appearance: WD/WN, no apparent distress Respiratory/Chest: Auscultation: breath sounds normal Cardiovascular: Heart Auscultation: RRR Abdomen: Bowel Sounds: normal Inspection & Palpation: soft, non-distended, no tenderness, guarding & rebound Assessment and Plan Assessment: 77 yo CF who presents for colonoscopy secondary to history of malignant polyp. Plan: Proceed with colonoscopy.
--- NOTE | 2017-06-02 09:47 | GI REPORT ---
Procedure Date: 06/02/2017 8:50 AM Procedure: Colonoscopy Indications: High risk colon cancer surveillance: Personal history of colonic polyps Medicines: Monitored Anesthesia Care Complications: No immediate complications. Estimated Blood Loss: Estimated blood loss: none. Procedure: Pre-Anesthesia Assessment: - Prior to the procedure, a History and Physical was performed, and patient medications and allergies were reviewed. The patient's tolerance of previous anesthesia was also reviewed. The risks and benefits of the procedure and the sedation options and risks were discussed with the patient. All questions were answered, and informed consent was obtained. Prior Anticoagulants: The patient has taken aspirin, last dose was 1 day prior to procedure. ASA Grade Assessment: III - A patient with severe systemic disease. After reviewing the risks and benefits, the patient was deemed in satisfactory condition to undergo the procedure. After I obtained informed consent, the scope was passed under direct vision. Throughout the procedure, the patient's blood pressure, pulse, and oxygen saturations were monitored continuously. The scope was introduced through the anus and advanced to the terminal ileum. The colonoscopy was performed without difficulty. The patient tolerated the procedure well. The quality of the bowel preparation was good. The terminal ileum, ileocecal valve, appendiceal orifice, and rectum were photographed. Findings: A 4 mm polyp was found in the sigmoid colon. The polyp was sessile. The polyp was removed with a hot snare. Resection and retrieval were complete. Multiple small-mouthed diverticula were found in the sigmoid colon. Non-bleeding internal hemorrhoids were found during retroflexion. The hemorrhoids were small. Impression: - One 4 mm polyp in the sigmoid colon, removed with a hot snare. Resected and retrieved. - Diverticulosis in the sigmoid colon. - Non-bleeding internal hemorrhoids. Recommendation: - Resume previous diet. - Continue present medications. - Repeat colonoscopy for surveillance based on pathology results. - Return to primary care physician as previously scheduled. Matthew Tyson, DO 06/02/2017 9:47:26 AM This report has been signed electronically. Note Initiated On: 06/02/2017 8:50 AM I attest to the content of the Intraoperative Record and orders documented therein, exceptions below
--- NOTE | 2017-06-02 09:48 | Discharge Instructions ---
Endoscopy Patient Instructions Date / Procedure(s) Performed Jun 02, 2017. Colonoscopy Allergy Information Coded Allergies: Hylan G-F 20 (Verified Allergy, Severe, KNEE SWELLING, 05/21/17) BECKY Inhibitors (Verified Allergy, Unknown, COUGH, 05/21/17) Cefaclor (Verified Allergy, Unknown, SICK, 05/21/17) Influenza Vaccines (Verified Allergy, Unknown, NEURO RX, 05/21/17) Letrozole (Verified Adverse Reaction, Unknown, LEG PAIN, 05/21/17) Levofloxacin (Verified Adverse Reaction, Unknown, "RUPTURED HAMSTRING TENDON", 05/21/17) Discharge Date / Findings Jun 02, 2017. Colon polyp Diverticulosis Internal hemorrhoids Medication Instructions Stopped Medication(s): stopped Glucophage ,took ASA yesterday OK to resume all medications today as prescribed Reported Home Medications Medications Dose Route/Sig Max Daily Dose Days Date Category Dose Instructions Claritin (Loratadine) 10 Mg Tab 10 Mg PO QAM 12/03/16 Reported Tylenol Arthritis Ext Rel (Acetaminophen) 650 Mg Cplt 650 Mg PO BID 12/03/16 Reported "ALWAYS TAKE ONE IN MORNING, MAYBE AT NIGHT IF I NEED IT" Proair Respiclick (Albuterol Sulfate) 108 Mcg/Act Aer 2 Puffs INH Q4H PRN 11/07/16 Reported Coq10 (Coenzyme Q10 (Ubidecarenone)) 100 Mg Cap 1 Cap PO QAM 11/07/16 Reported Vitamin D3 (Cholecalciferol) 2,000 Unit Tab 1 Tab PO TID 11/07/16 Reported Glucosamine Chondroitin (Nzowengkydq-Otwtvpgqqju-Ftp C-) 1 Tab Tab 1 Tab PO BID 11/07/16 Reported Restasis (Cyclosporine (Ophth)) 0.05 % Emu 1 Drop OPB BID 11/07/16 Reported Norvasc (Amlodipine Besylate) 5 Mg Tab 5 Mg PO QAM 11/07/16 Reported Multivitamin (Multivitamins) Tab 1 Tab PO QAM 12/24/15 Reported Aspirin Chewable (Aspirin) 81 Mg Chew 81 Mg PO QAM 12/24/15 Reported [place]-3 (Fish Oil) 1 Ea Cap 1 Cap PO TID 12/24/15 Reported Protonix (Pantoprazole Sodium) 40 Mg Tab 40 Mg PO QAM 12/24/15 Reported Zantac (Ranitidine HCl) 150 Mg Tab 150 Mg PO HS 12/24/15 Reported Glucophage (Metformin Hcl) 1,000 Mg Tab 1,000 Mg PO BID 12/24/15 Reported Levothyroxine Sodium 150 Mcg Tab 1 Tab PO QAM 12/24/15 Reported Benicar Hct 40/12.5 (Olmesartan/HCTZ) Tab 1 Tab PO QAM 12/24/15 Reported Zocor (Simvastatin) 20 Mg Tab 20 Mg PO QPM 05/10/07 Reported Nasonex (Mometasone Furoate) [place] 1 [place] SHASHI BID 05/10/07 Reported Qvar Hfa 80 Mcg * (Beclomethasone Dipropionate) Inh 2 Puff INH BID 05/10/07 Reported Provider Instructions Activity Restrictions - No exercising or heavy lifting for 24 hours. - Do not drink alcohol the day of the procedure. - Do not drive a car or operate machinery until the day after the procedure. - Do not make any important decisions or sign important papers in 24 hours after the procedure. Following Day: - Return to full activity which may include returning to work/school. Diet Start your diet with liquids and light foods (jello, soup, juice, toast). Then eat your usual diet if not nauseated. Treatment For Common After Affects For mild abdominal pain, bloating, or excessive gas: - Rest - Eat lightly - Lie on right side Follow-Up Information Follow-up with Dr. Estrellita Herrera as scheduled Anesthesia Information What You Should Know You have had a procedure that required some medicine to reduce anxiety and discomfort. This treatment is called moderate sedation. After receiving the treatment, you may be sleepy, but you will be able to breathe on your own. The effects of the treatment may last for several hours. Follow these instructions along with Activity/Diet recommendations noted above: * Do NOT do anything where dizziness or clumsiness would be dangerous. * Rest quietly at home today, then you can be up and about tomorrow. * Have a responsible person stay with you the rest of today. * You may have had an I.V. today. If so, you may take the dressing off later today. Recommendations Call your doctor if: * Trouble breathing * Continuous vomiting for more than 24 hours * Temperature above 101 degrees * Severe abdominal pain or bloating * Pain not relieved by pain medicine ordered * There is increased drainage or redness from any incision * A large amount of rectal bleeding greater than 2-3 tablespoons. (If you had a polyp/s removed or have hemorrhoids, a small amount of blood - from the rectum is to be expected.) * You have any unanswered questions or concerns. IN THE EVENT OF A SERIOUS EMERGENCY, GO TO THE NEAREST EMERGENCY ROOM Your discharge instructions were prepared by provider Matthew Tyson. Patient Instructions Signature Page Kerri Gerardo Patient (or Guardian) Signature/Date: I have read and understand the instructions given to me by my caregivers. Caregiver/RN/Doctor Signature/Date: The above-named patient and/or guardian has received patient instructions on this date. + Original Patient Signature Page (only) stays with chart. Please make copy for patient.
--- NOTE | 2017-06-02 09:48 | Anesthesiology Progress Note ---
Anesthesia Post Op Note Date & Time Jun 02, 2017 at 09:47 Vital Signs Pain Intensity: 0 Vital Signs Past 12 Hours Date Time Temp Pulse Resp B/P (MAP) Pulse Ox O2 Delivery O2 Flow Rate FiO2 06/02/17 08:19 37.2 78 20 172/68 (102) 95 Room Air Notes Mental Status: alert / awake / arousable, participated in evaluation Pt Amnestic to Procedure: Yes Nausea / Vomiting: adequately controlled Pain: adequately controlled Airway Patency, RR, SpO2: stable & adequate BP & HR: stable & adequate Hydration State: stable & adequate Anesthetic Complications: no major complications apparent
[2017-06-02 10:14] VITALS: BP 142/65; PULSE 67; O2SAT 94
== END | disposition home or self-care (01) ==
LOC: C.GI 07:49
PROVIDERS: ATTEND Internal Medicine
DX: Z12.11 Encounter for screening for malignant neoplasm of colon (principal); D12.5 Benign neoplasm of sigmoid colon; Z85.038 Personal history of other malignant neoplasm of large intestine; K64.8 Other hemorrhoids; K57.30 Diverticulosis of large intestine without perforation or abscess without bleeding; E11.9 Type 2 diabetes mellitus without complications; M19.90 Unspecified osteoarthritis, unspecified site; J45.909 Unspecified asthma, uncomplicated; K21.9 Gastro-esophageal reflux disease without esophagitis; E78.00 Pure hypercholesterolemia, unspecified; G47.33 Obstructive sleep apnea (adult) (pediatric); I10 Essential (primary) hypertension; E03.9 Hypothyroidism, unspecified; Z90.89 Acquired absence of other organs; Z90.710 Acquired absence of both cervix and uterus; Z90.49 Acquired absence of other specified parts of digestive tract; Z87.2 Personal history of diseases of the skin and subcutaneous tissue; Z80.0 Family history of malignant neoplasm of digestive organs; Z79.82 Long term (current) use of aspirin; Z79.84 Long term (current) use of oral hypoglycemic drugs; Z85.3 Personal history of malignant neoplasm of breast; E66.01 Morbid (severe) obesity due to excess calories; Z98.41 Cataract extraction status, right eye; Z98.42 Cataract extraction status, left eye

== ENCOUNTER → 2017-06-15 | Outpatient (CLI) | payer BC ==
[~2017-06-15] MED LIST changes: -PROPOFOL IV EMULSION 10 MG/ML 20 ML VIAL IV ONE
[2017-06-15 17:36] LABS: BASO % 0.4 %; BASO ABS # 0.03 K/uL (0-0.2); COMPLETE YES; EOS % 1.2 %; HEMATOCRIT 39.8 % (37-47); IG% 0.4 %; LYMPH % 44.1 %; LYMPH ABS # 3.31 K/uL (1.2-3.4); MEAN CELL VOLUME 88.1 fL (80-100); MEAN CORPUSCULAR HEMOGLOBIN 29.9 pg (25-34); MEAN CORPUSCULAR HGB CONC 33.9 g/dl (32-36); MEAN PLATELET VOLUME 10.7 fL (7.4-10.4); MONO % 11.3 %; NEUT % 42.6 %; PLATELET COUNT 233 K/uL (130-400); RED BLOOD COUNT 4.52 M/uL (4.2-5.4)
[2017-06-15 17:52] LABS: ALB/GLOB RATIO 1.1 (0.9-2); ALKALINE PHOSPHATASE 74 U/L (45-117); ALT/SGPT 34 U/L (12-78); AST/SGOT 19 U/L (15-37); BLOOD UREA NITROGEN 19 mg/dl (7-18); BUN/CREATININE RATIO 24.4 (10-20); CALCIUM 9.6 mg/dl (8.5-10.1); CARBON DIOXIDE 27 mmol/L (21-32); CHLORIDE 105 mmol/L (98-107); CREATININE 0.79 mg/dl (0.60-1.20); GLUCOSE 98 mg/dl (70-99); POTASSIUM 4.6 mmol/L (3.5-5.1); SODIUM 139 mmol/L (136-145)
== END | disposition home or self-care (01) ==
LOC: C.LABBC 13:31
PROVIDERS: ATTEND Internal Medicine Hematology & Oncology
DX: C50.412 Malignant neoplasm of upper-outer quadrant of left female breast (principal)

== ENCOUNTER → 2017-07-28 | Outpatient (CLI) | payer BC ==
[2017-07-28 11:32] LABS: ESTIMATED AVERAGE GLUCOSE 128 mg/dl; HA1C FLAG Normal (Normal)
[2017-07-28 11:33] LABS: ALT/SGPT 39 U/L (12-78); BLOOD UREA NITROGEN 19 mg/dl (7-18); BUN/CREATININE RATIO 23.6 (10-20); CALCIUM 9.4 mg/dl (8.5-10.1); CARBON DIOXIDE 27 mmol/L (21-32); CHLORIDE 103 mmol/L (98-107); CHOLESTEROL 146 mg/dl (0-200); CREATININE 0.79 mg/dl (0.60-1.20); GLUCOSE 113 mg/dl (70-99); POTASSIUM 4.4 mmol/L (3.5-5.1); SODIUM 141 mmol/L (136-145)
[2017-07-28 11:48] LABS: CHOLESTEROL/HDL RATIO 3.9; HDL CHOLESTEROL 37 mg/dl; LDL CHOLESTEROL CALCULATED 36 mg/dl; THYROID STIMULATING HORMONE 0.822 uIu/ml (0.300-4.500); TRIGLYCERIDES 367 mg/dl (0-150); VERY LOW DENSITY LIPOPROT CALC 73 mg/dl
== END | disposition home or self-care (01) ==
LOC: C.LABBC 07:55
PROVIDERS: ATTEND Family Medicine
DX: E11.9 Type 2 diabetes mellitus without complications (principal); E03.9 Hypothyroidism, unspecified; Z85.038 Personal history of other malignant neoplasm of large intestine; R29.898 Other symptoms and signs involving the musculoskeletal system

== ENCOUNTER → 2017-08-13 | Outpatient (CLI) | payer BC ==
[~2017-08-13] MED LIST changes: -AMLO-110 PO; +AMLO5TAB3 PO; +BECL80AE6 INH; +DIPH-437 PO; +DIPH30CA2 PO; +LORA10TA51 PO; +MELA1TAB5 PO; +MOME6000 NAE; +NYQUIL PO; +OXYC-57 PO; +PROBIOTIC PO; +TRAM-10 PO; +TYLER650 PO; +WARF2TAB PO
[2017-08-13 13:45] VITALS: BP 141/58; PULSE 81; TEMP 36.6; O2SAT 94
--- NOTE | 2017-08-13 15:51 | Radiation Oncology Follow-Up ---
Radiation Oncology Follow-Up Date of Visit Aug 13, 2017. 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 Last Edited By: Trayc Anand on January 30, 2017 10:19 History of Present Illness Ms. Alexander is a 76-year-old female who has a distant family history of breast cancer. The patient's aunt was diagnosed with breast cancer. She was treated with bilateral mastectomy and at age 60. She does not know if she from her breast cancer. She also has a niece who was diagnosed with breast cancer at age 26 and treated and is now alive and well in her 50s. The patient was being followed with serial screening mammograms. On 10/08/2016 patient underwent bilateral digital screening mammograms. There were new grouping of microcalcifications noted in the upper outer middle one third of the left breast.'s by magnification views were recommended. Therefore on every 2016 patient underwent a unilateral left digital diagnostic mammogram. This identified a new 3.5 mm cluster of pleomorphic microcalcifications in the upper outer middle one third of the left breast. No obvious associated mass, asymmetry or architectural distortion was noted. The microcalcifications were felt to be indeterminate and tissue sampling was recommended. On 10/28/2016 patient underwent a stereotactic biopsy of the upper outer quadrant of the left breast. This revealed an invasive ductal carcinoma, [place] grade 1 of 3. Estrogen receptors were positive (100%, strong intensity, H-score 300). Progesterone receptors were positive (95%, strong intensity, H-score 285). HER-2/yong overexpression was negative by immunohistochemistry and confirmed negative by FISH analysis. The Ki-67 proliferation index was 7% (low). Intermediate grade ductal carcinoma in situ with microcalcifications were appreciated. Case: [id number]. Patient was seen by Dr. Alex Ochoa who discussed definitive treatment options. The patient opted to proceed with breast conserving therapy. Therefore on she underwent a left partial mastectomy and sentinel node biopsy. The sentinel node was benign with no tumor seen. The lumpectomy specimen showed chronic changes consistent with the prior biopsy but no residual invasive or in situ carcinoma was seen. Case: [id number]. The final AJCC staging is therefore pT1a pN0(sn-), ER positive, SD positive and HER-2/yong negative. Patient was seen by Dr. Lopes to discuss the systemic adjuvant treatment options. He did not feel the patient required consideration of adjuvant chemotherapy. He didn't feel the patient would benefit from a course of aromatase inhibitor therapy for 5 years to start after the completion of the radiation. Options of treatment were reviewed with her. She underwent a CT simulation was found to be a candidate for accelerated partial breast irradiation. This was completed on 01/13/2017. She received 3850 cGy. Interim History She developed a firm mass in the upper outer portion of the left breast following her last visit. She can recall possible injury. She was seen by Dr. Ochoa. An ultrasound was performed. She states that this has been diagnosed as being a hematoma. This will steadily resolved over time. This is becoming smaller. She does continue to have some mild associated discomfort. There is been no changes of the axilla. She is noted no swelling of her arm. She is up- to-date on mammography. She was not able to tolerate aromatase inhibitors. These causes severe joint pain. The medication was discontinued. Allergies Coded Allergies: Hylan G-F 20 (Verified Allergy, Severe, KNEE SWELLING, 05/21/17) BECKY Inhibitors (Verified Allergy, Unknown, COUGH, 05/21/17) Cefaclor (Verified Allergy, Unknown, SICK, 05/21/17) Influenza Vaccines (Verified Allergy, Unknown, NEURO RX, 05/21/17) Letrozole (Verified Adverse Reaction, Unknown, LEG PAIN, 05/21/17) Levofloxacin (Verified Adverse Reaction, Unknown, "RUPTURED HAMSTRING TENDON", 05/21/17) Home Medications Scheduled Acetaminophen (Tylenol Arthritis Ext Rel), 650 MG PO BID Amlodipine (Norvasc), 5 MG PO QAM Aspirin (Aspirin Chewable), 81 MG PO QAM Beclomethasone Dip (Qvar Hfa 80 Mcg *), 2 PUFF INH BID Cholecalciferol (Vitamin D3), 1 TAB PO TID Coenzyme Q10 (Ubidecarenone) (Coq10), 1 CAP PO QAM Cyclosporine (Ophth) (Restasis), 1 DROP OPB BID Fish Oil ([place]-3), 1 CAP PO TID Jchrlykbwje-Sljgobhrdzk-Wte C- (Glucosamine Chondroitin), 1 TAB PO BID Levothyroxine Sodium (Levothyroxine Sodium), 1 TAB PO QAM Loratadine (Claritin), 10 MG PO QAM Metformin Hcl (Glucophage), 1,000 MG PO BID Mometasone Furoate (Nasonex), 1 SPRAY SHASHI BID Multivitamin (Multivitamin), 1 TAB PO QAM Olmesartan/Hctz (Benicar Hct 40/12.5), 1 TAB PO QAM Pantoprazole (Protonix), 40 MG PO QAM Ranitidine Hcl (Zantac), 150 MG PO HS Simvastatin (Zocor), 20 MG PO QPM Scheduled PRN Albuterol Sulfate (Proair Respiclick), 2 PUFFS INH Q4H PRN for Shortness of Breath Review of Systems Gastrointestinal: Symptoms: WNL, Diarrhea GI Comments: nausea about every ten days Oral: Symptoms: No Problems Respiratory: Symptoms: Dry Cough Urinary: Symptoms: WNL Skin: Symptoms: No Problems Breast: Right Upper Arm Measurement: 36.5 Right Mid Arm Measurement: 25.5 Right Wrist Measurement: 16.5 Left Upper Arm Measurement: 36.0 Left Mid Arm Measurement: 25.5 Left Wrist Measurement: 16.5 Arm Dominence: Right Physical Exam Vital Signs Date Time Temp Pulse Resp B/P (MAP) Pulse Ox O2 Delivery O2 Flow Rate FiO2 08/13/17 13:45 36.6 81 20 141/58 94 Fatigue: None General Appearance: no apparent distress Eyes: normal inspection, EOMI ENT: normal ENT inspection, hearing grossly normal Neck: no adenopathy, thyroid normal Respiratory/Chest: lungs clear, no respiratory distress, no accessory muscle use Breast: There is a palpable hematoma in the upper outer portion of the left breast approximately 4 cm. There is slight tenderness. There are no changes of the overlying skin. Otherwise there are no masses or tenderness no axillary adenopathy. She has no skin retractions or nipple changes. Using the [place] score cosmesis she has a good outcome. The right breast showed no masses or tenderness and no axillary adenopathy. Cardiovascular: regular rate, rhythm, no gallop, no murmur Abdomen: non tender Extremities: no pedal edema Neurologic/Psychiatric: no motor/sensory deficits, alert, normal mood/affect Skin: warm/dry Pain Management Patient Reports Pain: Yes Side: Bilateral Pain Location: Leg Patient Preferred Pain Scale: 0 - 10 Initial Pain Intensity: 5.0 Pain Management Plan This is pain related to arthritis. She has pain medication available. Laboratory Laboratory Results: not applicable Pathology Pathology Results: not applicable Imaging Imaging Studies: were reviewed, and pertinent findings noted below Imaging Comments Patient: JOHAN ALEXANDER [facility] Rec: [id number] Address1: [address] [place] [address] Address2: [facility] ID: [id number] Date: 1940 Sex: F Ref Phy: Alex Ochoa M.D. Att Phy: Alex Ochoa M.D. Lamar Phy: No Doctor, Assigned Inter Phy: Liset Pak MD [facility]: [place] [address] SC: C.MAMM Report #: [id number] [place] Marshal: SARITA Diagnosis: NEW LEFT BREAST MASS Service Date: 03/11/17 MNE: [id number] Ordering Dr: Alex Ochoa M.D. CC: Alex Ochoa M.D. CONF: DICTATED BY: Liset Pak MD MAMMOGRAPHY REPORT UNILATERAL LEFT DIGITAL DIAGNOSTIC MAMMOGRAM TOMOSYNTHESIS WITH CAD AND TARGETED LEFT ULTRASOUND: 03/11/2017 CLINICAL HISTORY: History of left breast cancer status post lumpectomy November 2016 as well as radiation therapy. The patient reports a new palpable lump in her left breast for approximately one week, which has decreased in size since she first felt it. She denies any pain or associated skin erythema at the site of the lump. TECHNIQUE: Breast tomosynthesis in addition to standard 2D mammography was performed. Current study was also evaluated with a Computer Aided Detection (CAD ) system. Left CC and MLO 2-D and tomosynthesis images and spot magnification left CC and ML views of the lumpectomy bed were obtained. COMPARISON: Comparison is made to exams dated: 10/28/2016 stereotactic biopsy, mammogram, 10/13/2016 mammogram, 10/08/2016 mammogram, 10/02/2015 mammogram , and 09/28/2014 mammogram - [facility]. BREAST COMPOSITION: There are scattered areas of fibroglandular density in the left breast. FINDINGS: A triangle marker bianchi the site of the palpable lump in the left upper outer quadrant. There are new post surgical changes in the left upper outer quadrant from prior lumpectomy, including new architectural distortion and surgical clips at the lumpectomy bed. There is an oval 6.0 x 4.4 cm mass at the lumpectomy bed, for which ultrasound was performed. No suspicious clusters of microcalcifications are noted at the lumpectomy bed. The remainder of the left breast is stable compared to prior exams, without suspicious masses, calcifications, or areas of architectural distortion noted. Targeted ultrasound was performed of the area of the palpable lump pointed out by the patient, in the left breast at approximately 12:30 to 1:00 at the surgical bed. At the site of the palpable lump there is a large hypoechoic fluid collection which contains internal septations, which is too large to accurately measure on ultrasound but measures at least 5.0 x 3.0 x 4.1 cm. This corresponds with the mammographic mass and has the appearance of a chronic postsurgical fluid collection such as a seroma/hematoma. IMPRESSION: ACR-BI-RADS CATEGORY 3: PROBABLY BENIGN, TARGETED ULTRASOUND ACR-BI -RADS CATEGORY 3: PROBABLY BENIGN Large 6 cm fluid collection at the lumpectomy bed in the left 12:30 to 1:00 breast, which corresponds with the palpable lump felt by the patient. The mass likely represents a postsurgical fluid collection such as a chronic seroma/ hematoma. Recommend bilateral diagnostic mammograms in 6 months, to reevaluate the left breast postsurgical changes and fluid collection and for routine mammography of the right breast. Also recommend clinical follow-up for the palpable lump. The patient has been verbally notified of the results. Approximately 10% of breast cancers are not detected with mammography. A negative mammographic report should not delay biopsy if a clinically suggestive mass is present. Liset Pak M.D. /:03/11/2017 10:51:38 Attendant Honor Bar: Juli SANDHU(Gabbi)(M), [facility] letter sent: Personal History 3 BI-RADS Code: ACR-BI-RADS Category 3: Probably Benign Ultrasound BI-RADS: ACR- BI-RADS Category 3: Probably Benign Dictated by: Liset Pak MD Signed by: Liset Pak MD Assessment & Plan Plan: Continue with follow-up mammography. Her next mammogram will be 2016. Continue follow-up with Dr. Ochoa and medical oncology. We asked her to return to our office in 1 year. She may call if she has any questions or concerns in the interim. She is also following with Dr. Miranda in regards to a ruptured hamstring. Total Time In Follow-Up I spent 20 minutes speaking to the patient performing examination. I spent 15 minutes reviewing information in completing this note. Copy To Alex Ochoa M.D.; Teddy Lopes MD; Estrellita Herrera MD Problem Qualifiers (1) Breast cancer: Breast location: upper outer quadrant of breast Estrogen receptor status: positive Patient sex: female Laterality: right Qualified Codes: C50.411 - Malignant neoplasm of upper-outer quadrant of right female breast; Z17.0 - Estrogen receptor positive status [ER+]
== END | disposition home or self-care (01) ==
LOC: C.ONC 13:08
PROVIDERS: ATTEND Physician Assistant Medical
DX: Z08 Encounter for follow-up examination after completed treatment for malignant neoplasm (principal); Z92.3 Personal history of irradiation; Z85.3 Personal history of malignant neoplasm of breast

== ENCOUNTER → 2017-09-11 | Outpatient (CLI) | payer BC ==
--- NOTE | 2017-09-11 14:38 | MAMMOGRAPHY REPORT ---
BILATERAL DIGITAL DIAGNOSTIC MAMMOGRAM TOMOSYNTHESIS WITH CAD: 09/11/2017 CLINICAL HISTORY: History of left breast cancer status post lumpectomy November 2016 as well as radiatio n therapy. The patient reports she still feels a palpable lump at her surgical bed which was shown t o represent a seroma/hematoma on prior imaging, however, the patient feels that it may be decreased i n size and softer. TECHNIQUE: Breast tomosynthesis in addition to standard 2D mammography was performed. Current study was also evaluated with a Computer Aided Detection (CAD) system. Bilateral CC and MLO 2-D and tomosy nthesis images and spot magnification left CC and ML views were obtained. COMPARISON: Comparison is made to exams dated: 03/11/2017 ultrasound, 03/11/2017 mammogram, 12/03/2016 sp ecimen, 12/03/2016 localization, 10/28/2016 stereotactic biopsy, and 10/28/2016 mammogram - [facility]. BREAST COMPOSITION: The tissue of both breasts is almost entirely fatty. FINDINGS: Again noted are postsurgical changes in the left upper outer quadrant from prior lumpectom y, including architectural distortion and surgical clips at the lumpectomy bed. Again noted is a cir cumscribed round mass at the surgical bed which was shown to represent a seroma/hematoma on the prior ultrasound exam. The mass is decreased in size, currently measuring 3.9 x 4.6 cm, previously measur ing 4.3 x 5.6 cm. Spot magnification views of the lumpectomy bed demonstrate benign vascular calcifi cations as well as benign rim calcifications, without suspicious mass or cluster of calcifications no nabil. The remainder of both breasts are stable compared to prior exams, without suspicious masses, calcific ations, or areas of architectural distortion noted. Small scattered circumscribed benign-appearing m asses are again noted within the right breast, including a small 6 mm benign-appearing mass within th e right central/6:00 breast posteriorly which is decreased in size compared to the 2008 exam. Bilate ral benign-appearing calcifications are not significantly changed. IMPRESSION: ACR-BI-RADS CATEGORY 3: PROBABLY BENIGN Post surgical changes in the left breast from prior lumpectomy, with interval decrease in size of the postsurgical seroma/hematoma at the surgical bed, now measuring 4.6 cm. There is no mammographic ev idence of malignancy in either breast. Recommend follow-up diagnostic tomosynthesis mammograms of th e left breast in 6 months to reevaluate left breast posttreatment changes. The patient has been verbally notified of the results. Approximately 10% of breast cancers are not detected with mammography. A negative mammographic report should not delay biopsy if a clinically suggestive mass is present. Liset Pak M.D. ah/:09/11/2017 11:28:43 Mud Trucker: Judith Dominguez, [facility] letter sent: Personal History 3 BI-RADS Code: ACR-BI-RADS Category 3: Probably Benign
== END | disposition home or self-care (01) ==
LOC: C.MAMM 10:54
PROVIDERS: ATTEND Obstetrics & Gynecology
DX: Z08 Encounter for follow-up examination after completed treatment for malignant neoplasm (principal); Z85.3 Personal history of malignant neoplasm of breast; Z92.3 Personal history of irradiation; Z98.890 Other specified postprocedural states

== ENCOUNTER → 2017-09-14 | Outpatient (CLI) | payer BC ==
[~2017-09-14] MED LIST changes: +AMLO-110 PO; -AMLO5TAB3 PO; -BECL80AE6 INH; -DIPH-437 PO; -DIPH30CA2 PO; -LORA10TA51 PO; -MELA1TAB5 PO; -MOME6000 NAE; -NYQUIL PO; -OXYC-57 PO; -PROBIOTIC PO; -TRAM-10 PO; -TYLER650 PO; -WARF2TAB PO
[2017-09-14 13:33] LABS: BASO % 0.7 %; BASO ABS # 0.04 K/uL (0-0.2); EOS ABS # 0.06 K/uL (0-0.5); HEMATOCRIT 40.6 % (37-47); HEMOGLOBIN 13.6 g/dL (12.0-16.0); IG# 0.02 K/uL (0.00-0.02); LYMPH % 36.9 %; LYMPH ABS # 2.27 K/uL (1.2-3.4); MEAN CELL VOLUME 88.6 fL (80-100); MEAN CORPUSCULAR HEMOGLOBIN 29.7 pg (25-34); MEAN CORPUSCULAR HGB CONC 33.5 g/dl (32-36); MEAN PLATELET VOLUME 11.1 fL (7.4-10.4); MONO ABS # 0.86 K/uL (0.11-0.59); NEUT % 47.1 %; PLATELET COUNT 261 K/uL (130-400); RED CELL DISTRIBUTION WIDTH CV 15.1 % (11.5-14.5); WHITE BLOOD COUNT 6.15 K/uL (4.8-10.8)
[2017-09-14 14:13] LABS: ALBUMIN 3.9 gm/dl (3.4-5.0); ALT/SGPT 39 U/L (12-78); AST/SGOT 26 U/L (15-37); BLOOD UREA NITROGEN 17 mg/dl (7-18); CALCIUM 9.7 mg/dl (8.5-10.1); CARBON DIOXIDE 25 mmol/L (21-32); CREATININE 0.86 mg/dl (0.60-1.20); GLUCOSE 102 mg/dl (70-99); POTASSIUM 4.1 mmol/L (3.5-5.1); SODIUM 137 mmol/L (136-145)
[2017-09-14 14:15] LABS: ALKALINE PHOSPHATASE 66 U/L (45-117); TOTAL PROTEIN 7.6 gm/dl (6.4-8.2)
== END | disposition home or self-care (01) ==
LOC: C.LABBC 10:03
PROVIDERS: ATTEND Internal Medicine Hematology & Oncology
DX: C50.412 Malignant neoplasm of upper-outer quadrant of left female breast (principal)

== ENCOUNTER → 2017-11-04 | Outpatient (CLI) | payer BC | END | disposition home or self-care (01) | LOC: C.LABSPEC 10:39 | PROVIDERS: ATTEND Nurse Practitioner Family | DX: R39.9 Unspecified symptoms and signs involving the genitourinary system (principal) ==

== ENCOUNTER → 2017-12-15 | Outpatient (CLI) | payer BC ==
[2017-12-15 10:40] LABS: BASO % 0.4 %; BASO ABS # 0.02 K/uL (0-0.2); EOS % 1.7 %; EOS ABS # 0.09 K/uL (0-0.5); HEMATOCRIT 41.8 % (37-47); HEMOGLOBIN 14.1 g/dL (12.0-16.0); IG# 0.01 K/uL (0.00-0.02); LYMPH % 48.5 %; LYMPH ABS # 2.56 K/uL (1.2-3.4); MEAN CELL VOLUME 88.4 fL (80-100); MEAN CORPUSCULAR HEMOGLOBIN 29.8 pg (25-34); MEAN CORPUSCULAR HGB CONC 33.7 g/dl (32-36); MEAN PLATELET VOLUME 10.5 fL (7.4-10.4); MONO % 13.8 %; MONO ABS # 0.73 K/uL (0.11-0.59); NEUT % 35.4 %; NEUT ABS # 1.87 K/uL (1.4-6.5); PLATELET COUNT 245 K/uL (130-400); RED CELL DISTRIBUTION WIDTH CV 16.3 % (11.5-14.5); RED CELL DISTRIBUTION WIDTH SD 53.1 fL (36.4-46.3); WHITE BLOOD COUNT 5.28 K/uL (4.8-10.8)
[2017-12-15 11:00] LABS: ALBUMIN 3.9 gm/dl (3.4-5.0); ALT/SGPT 32 U/L (12-78); BLOOD UREA NITROGEN 19 mg/dl (7-18); CALCIUM 9.6 mg/dl (8.5-10.1); CARBON DIOXIDE 29 mmol/L (21-32); CHOLESTEROL 159 mg/dl (0-200); CREATININE 0.87 mg/dl (0.60-1.20); GLUCOSE 121 mg/dl (70-99); POTASSIUM 4.1 mmol/L (3.5-5.1); SODIUM 138 mmol/L (136-145)
[2017-12-15 11:05] LABS: HEMOGLOBIN A1C 5.9 % (4.5-5.6)
[2017-12-15 11:11] LABS: ALKALINE PHOSPHATASE 67 U/L (45-117); AST/SGOT 23 U/L (15-37); LDL CHOLESTEROL CALCULATED 46 mg/dl; TOTAL PROTEIN 7.3 gm/dl (6.4-8.2)
== END | disposition home or self-care (01) ==
LOC: C.LABBC 07:52
PROVIDERS: ATTEND Family Medicine
DX: E03.9 Hypothyroidism, unspecified (principal); I10 Essential (primary) hypertension; E11.9 Type 2 diabetes mellitus without complications; C18.2 Malignant neoplasm of ascending colon; C50.412 Malignant neoplasm of upper-outer quadrant of left female breast

== ENCOUNTER → 2018-03-22 | Outpatient (CLI) | payer BC ==
[~2018-03-22] MED LIST changes: -ACET1TAB84 PO; -AMLO-110 PO; +AMLO5TAB3 PO; +BECL80AE6 INH; -COEN100C7 PO; +DIPH-437 PO; +DIPH30CA2 PO; -GLUCTAB7 PO; +LORA10TA51 PO; +MELA1TAB5 PO; -MOME50SP5 NAE; +MOME6000 NAE; -OMEG10007 PO; +OXYC-57 PO; +PROBIOTIC PO; -QVRINH80 INH; +TRAM-10 PO; +TYLER650 PO; +WARF2TAB PO
[2018-03-22 16:13] LABS: INR 1.4 (0.9-1.1)
== END | disposition home or self-care (01) ==
LOC: C.LABSPEC 14:50
PROVIDERS: ATTEND Physical Medicine & Rehabilitation Sports Medicine
DX: Z96.651 Presence of right artificial knee joint (principal); Z51.81 Encounter for therapeutic drug level monitoring; Z79.01 Long term (current) use of anticoagulants

== ENCOUNTER → 2018-03-29 | Outpatient (CLI) | payer BC ==
[2018-03-29 10:59] LABS: INR 1.7 (0.9-1.1)
--- NOTE | 2018-04-07 17:13 | CODING QUERY NO DIAGNOSIS ---
Valid Physician Order Needed A valid physician order must be submitted in order to properly bill for the service(s) provided, including date of service(s), valid diagnosis, and physician signature. If these tests are done on a recurring basis the original physican order must be submitted in order to code and bill for the service(s) provided. Please fax us the original, signed physician order so that we may expedite billing to [phone] DOS 03/29/18 * PT/INR ORDERED BY DR. INTERIANO Thank you Linda [facility] Information Management
--- NOTE | 2018-04-27 06:20 | CODING QUERY NO DIAGNOSIS ---
TREATMENT RENDERED WITHOUT A DIAGNOSIS To promote full compliance with coding requirements relating to patient care, physician participation is requested in all cases of real estate job titles uncertainty. Please assist us with providing a diagnosis/symptom for the test(s) below: A diagnosis/symptom was not documented on your Order. A valid diagnosis/symptom is required to bill all insurances. Please remember that we are unable to code a diagnosis of rule out, probable, possible, questionable, or suspected. Tests that require a diagnosis: DOS: 03/29/18 * PT/INR DIAGNOSIS: Provider Signature: Date: Thank you [facility] Information Management Once completed, please kindly fax back to [phone] For questions please call [phone]
== END | disposition home or self-care (01) ==
LOC: C.LABSPEC 10:38
PROVIDERS: ATTEND Physical Medicine & Rehabilitation Sports Medicine
DX: Z51.81 Encounter for therapeutic drug level monitoring (principal); Z79.01 Long term (current) use of anticoagulants

== ENCOUNTER → 2018-04-05 | Outpatient (CLI) | payer BC ==
--- NOTE | 2018-04-12 13:36 | CODING QUERY NO DIAGNOSIS ---
1940 Valid Physician Order Needed A valid physician order must be submitted in order to properly bill for the service(s) provided, including date of service(s), valid diagnosis, and physician signature. If these tests are done on a recurring basis the original physican order must be submitted in order to code and bill for the service(s) provided. Please fax us the original, signed physician order so that we may expedite billing to [phone] DOS 04/05/18 *PROTHROMBIN TIME Thank you GILMAR Toth,[facility] Information Management
== END | disposition home or self-care (01) ==
LOC: C.LABSPEC 12:42
PROVIDERS: ATTEND Physical Medicine & Rehabilitation Sports Medicine
DX: Z01.89 Encounter for other specified special examinations (principal)

== ENCOUNTER → 2018-04-30 | Outpatient (CLI) | payer BC ==
[~2018-04-30] MED LIST changes: +OPTIRAY 320 IV PRN
--- NOTE | 2018-04-30 12:38 | DIAGNOSTIC IMAGING REPORT ---
ABD/PELVIS IV AND ORAL CONT CLINICAL HISTORY: 78 years-old Female presenting with CARCINOMA OF ASCENDING COLON, HISTORY OF COLON CA. TECHNIQUE: Multidetector CT of the abdomen and pelvis was performed after the administration of oral and intravenous contrast. IV contrast: 91 mL of Optiray 320. A dose lowering technique was used consistent with the principles of ALARA (as low as reasonably achievable). COMPARISON: 04/07/2017. CT DOSE (mGy.cm): The estimated cumulative dose is 1495.53 mGy.cm. FINDINGS: Merchandise Execution Leader topogram: Cholecystectomy clips. Evidence of hernia repair in the left lower abdomen. Lung bases: Minimal basilar opacities, likely atelectasis. Mosaic attenuation suggest small airways disease. Left atrial enlargement. No pericardial or pleural effusion. Liver: Normal morphology. No liver lesion. Patent hepatic vasculature. Biliary: No intrahepatic or extrahepatic biliary ductal dilatation. Gallbladder surgically absent. Pancreas: Normal. Spleen: Normal. Adrenal glands: Normal. Kidneys and ureters: Well-defined hypodensities in the kidneys are indeterminate by density, possibly complex or hemorrhagic or proteinaceous cysts. Based on the prior noncontrast CT, these are likely nonenhancing. Renal cysts are compatible with the finding on ultrasound from 2014. No nephrolithiasis. No hydronephrosis. Mild urothelial thickening, right greater than left. Ureters nondistended. Bladder: Incompletely evaluated secondary to underdistention. Pelvic organs: Uterus surgically absent. No adnexal masses. Bowel: Colocolonic anastomosis at the upper rectum with evidence of prior partial sigmoidectomy. Diverticulosis in the descending colon. Moderate stool burden in the transverse and right colon. The appendix is not seen, possibly surgically absent. No bowel obstruction. The reported mass in the ascending colon is not apparent. Peritoneal cavity: No free fluid or intraperitoneal gas. Lymph nodes: No enlarged lymph nodes in the abdomen or pelvis. Vasculature: Atherosclerosis of the normal caliber abdominal aorta. IVC patent. Abdominal wall: Fat-containing ventral hernia along the inferomedial margin of postsurgical change. No infiltration or fluid associated with the herniated fat to suggest strangulation. The appearance is unchanged from prior. Musculoskeletal: Degenerative changes of the spine. No destructive osseous lesion. Degenerative changes of the hips, left greater than right. IMPRESSION: 1. No evidence of metastatic disease in the abdomen or pelvis. The reported ascending colon primary malignancy is not visualized. 2. Postsurgical changes of colocolonic anastomosis with sigmoidectomy. 3. Diverticulosis of the descending colon. No evidence of diverticulitis. 4. Fat-containing ventral hernia. Electronically signed by: Sreedhar Arroyo M.D. 04/30/2018 12:37 PM Dictated Date/Time: 04/30/2018 12:11 PM
== END | disposition home or self-care (01) ==
LOC: C.CTS 11:36
PROVIDERS: ATTEND Family Medicine
DX: K43.9 Ventral hernia without obstruction or gangrene (principal); K57.30 Diverticulosis of large intestine without perforation or abscess without bleeding; Z85.038 Personal history of other malignant neoplasm of large intestine; Z90.49 Acquired absence of other specified parts of digestive tract

== ENCOUNTER → 2018-05-03 | Outpatient (CLI) | payer BC ==
[~2018-05-03] MED LIST changes: -OPTIRAY 320 IV PRN
--- NOTE | 2018-05-07 06:31 | CODING QUERY NO DIAGNOSIS ---
1940 TREATMENT RENDERED WITHOUT A DIAGNOSIS To promote full compliance with coding requirements relating to patient care, physician participation is requested in all cases of bioinformatics team member uncertainty. Please assist us with providing a diagnosis/symptom for the test(s) below: A diagnosis/symptom was not documented on your Order. A valid diagnosis/symptom is required to bill all insurances. Please remember that we are unable to code a diagnosis of rule out, probable, possible, questionable, or suspected. Tests that require a diagnosis: DOS 04/29/18 KNEE 3 VIEWS DIAGNOSIS: COMPARISON VIEWS DIAGNOSIS: Provider Signature: Date: Thank you Bernice Liceasilverio [employer] Once completed, please kindly fax back to [phone] For questions please call [phone]
== END | disposition home or self-care (01) ==
LOC: C.RDSM 16:00
PROVIDERS: ATTEND Physical Medicine & Rehabilitation Sports Medicine
DX: Z96.651 Presence of right artificial knee joint (principal)

== ENCOUNTER 2019-05-11 05:08 | Inpatient (IN) ==
--- NOTE | 2019-04-14 14:38 | PAT Medication Instructions ---
Medication Instructions Date of Service April 14, 2019 Home Medications Medication Instructions Recorded pantoprazole 40 mg PO BID #60 tab 04/05/19 Alvesco 1 - 2 puff INHALATION BID Restasis 1 drp OPHTHALMIC (EYE) Q12H albuterol sulfate [ProAir HFA] 1 - 2 puff INHALATION BID amlodipine 5 mg PO QAM aspirin [Aspirin Low Dose] 81 mg PO QAM cholecalciferol (vitamin D3) [Vitamin D3] 2,000 unit PO BID levothyroxine 150 mcg PO QAM loratadine [Claritin] 10 mg PO QAM melatonin 3 mg PO HS metformin 1,000 mg PO BID mometasone [Nasonex] 2 spray INTRANASAL QAM multivitamin 1 tab PO QDL olmesartan-hydrochlorothiazide 1 tab PO QAM ranitidine HCl 150 mg PO HS simvastatin 20 mg PO HS coQ10 (ubiquinol) 100 mg PO DAILY glucosamine-chondroitin [Osteo Bi-Flex] 1 tab PO DAILY omega 2-zdo-cex-fish oil [Fish Oil] 1 cap PO DAILY pantoprazole 40 mg PO BID STOP taking 2 weeks before surgery coQ10 (ubiquinol) 100 mg PO DAILY glucosamine-chondroitin [Osteo Bi-Flex] 1 tab PO DAILY omega 2-yvn-zcn-fish oil [Fish Oil] 1 cap PO DAILY DO NOT take the morning of surgery cholecalciferol (vitamin D3) [Vitamin D3] 2,000 unit PO BID loratadine [Claritin] 10 mg PO QAM metformin 1,000 mg PO BID multivitamin 1 tab PO QDL olmesartan-hydrochlorothiazide 1 tab PO QAM Take morning of surgery With a small sip of water, OTHERWISE NOTHING TO EAT OR DRINK AFTER MIDNIGHT: Alvesco 1 - 2 puff INHALATION BID Restasis 1 drp OPHTHALMIC (EYE) Q12H albuterol sulfate [ProAir HFA] 1 - 2 puff INHALATION BID amlodipine 5 mg PO QAM levothyroxine 150 mcg PO QAM mometasone [Nasonex] 2 spray INTRANASAL QAM pantoprazole 40 mg PO BID Take evening before surgery Alvesco 1 - 2 puff INHALATION BID Restasis 1 drp OPHTHALMIC (EYE) Q12H albuterol sulfate [ProAir HFA] 1 - 2 puff INHALATION BID cholecalciferol (vitamin D3) [Vitamin D3] 2,000 unit PO BID melatonin 3 mg PO HS metformin 1,000 mg PO BID ranitidine HCl 150 mg PO HS simvastatin 20 mg PO HS pantoprazole 40 mg PO BID Other Notes If you have any questions please call us at [phone] or [phone] or [phone] or [phone]
--- NOTE | 2019-04-15 10:57 | Anesthesiology Consultation ---
Date of Service April 15, 2019 Assessment & Plan (1) Encounter for pre-operative examination: - Cardio: 04/18/19: "The patient is stable from a cardiovascular standpoint. She demonstrates excellent control of her blood pressure and LDL cholesterol. She had a negative dobutamine stress echocardiogram performed back in December, and is able to ride a stationary bicycle without any cardiac symptoms. She is an acceptable cardiac risk for knee replacement surgery without further testing.. Acceptable cardiac risk for upcoming orthopedic surgery." - Check BSG AM DOS - ASA instructions: okay to continue ASA perioperatively per surgeon. - GERD: patient states that GERD worsens when laying flat for long periods of time. Patient requests to be elevated when possible/as much as possible. Chart Review Chart Review: Acceptable Risk for Surgery and Patient seen in Pre Admission Testing Teaching & Discussion Pre-Anesthesia Teaching/Discussion Notes: Instructed NPO after midnight before surgery,except medications with 15 cc of water. Medication instructions provided according to the PAT guidelines. History Surgery Operation Date: 05/11/19 09:20 Proposed Procedures p Left Total Knee Arthroplasty - Geovani Miranda MD Height/Weight Height: 5 ft 5 in Weight: 107.7 kg Allergies Allergy/AdvReac Type Severity Reaction Status Date / Time hylan G-F 20 Allergy Severe KNEE Verified 04/18/19 13:51 SWELLING BECKY Inhibitors Allergy Intermediate COUGH Verified 04/18/19 13:51 Influenza Virus Vaccines Allergy Mild NEURO RX Verified 04/18/19 13:51 cefaclor AdvReac Mild NAUSEA Verified 04/18/19 13:51 letrozole AdvReac Mild LEG PAIN Verified 04/18/19 13:51 levofloxacin AdvReac Mild "RUPTURED Verified 04/18/19 13:51 HAMSTRING TENDON" Medications Home Medications Medication Instructions Recorded Confirmed Last Taken Alvesco 1 - 2 puff INHALATION BID 05/31/18 04/18/19 04/05/19 07:30 albuterol sulfate [ProAir HFA] 1 - 2 puff INHALATION BID 05/31/18 04/18/19 04/05/19 07:30 amlodipine 5 mg PO QAM 05/31/18 04/18/19 04/05/19 04:30 aspirin [Aspirin Low Dose] 81 mg PO QAM 05/31/18 04/18/19 04/04/19 08:00 cholecalciferol (vitamin D3) 2,000 unit PO BID 05/31/18 04/18/19 04/04/19 08:00 [Vitamin D3] levothyroxine 150 mcg PO QAM 05/31/18 04/18/19 04/05/19 04:30 loratadine [Claritin] 10 mg PO QAM 05/31/18 04/18/19 04/05/19 04:30 melatonin 3 mg PO HS 05/31/18 04/18/19 04/04/19 21:00 metformin 1,000 mg PO BID 05/31/18 04/18/19 04/04/19 18:00 mometasone [Nasonex] 2 spray INTRANASAL QAM 05/31/18 04/18/19 04/05/19 07:30 multivitamin 1 tab PO QDL 05/31/18 04/18/19 04/04/19 08:00 olmesartan-hydrochlorothiazide 1 tab PO QAM 05/31/18 04/18/19 04/04/19 08:00 ranitidine HCl 150 mg PO HS 05/31/18 04/18/19 04/04/19 21:00 simvastatin 20 mg PO HS 05/31/18 04/18/19 04/04/19 21:00 coQ10 (ubiquinol) 100 mg PO DAILY 03/22/19 04/18/19 04/04/19 08:00 glucosamine-chondroitin [Osteo 1 tab PO DAILY 03/22/19 04/18/19 04/04/19 08:00 Bi-Flex] omega 1-jao-uzk-fish oil [Fish Oil] 1 cap PO DAILY 03/22/19 04/18/19 04/04/19 08:00 pantoprazole 40 mg PO BID #60 tab 04/05/19 04/18/19 Unknown Lactobacillus acidophilus See Rx Instructions PO DAILY 04/18/19 04/18/19 Unknown blood sugar diagnostic strips #10 ea 04/18/19 04/18/19 Unknown cyclosporine 0.05 % eye drops in a See Rx Instructions OPHTHALMIC 04/18/19 04/18/19 Unknown dropperette (EYE) BID 90 Days #60 ea diphenhydramine 25 1 tab PO HS tab 04/18/19 04/18/19 Unknown mg-acetaminophen 500 mg tablet lancets MS 04/18/19 04/18/19 Unknown Past Medical History Medical History Asthma stable Breast cancer, left breast 2017 s/p left breast lumpectomy/radiation - LUE limb restriction Diabetes mellitus, type 2 NIDDM GERD (gastroesophageal reflux disease) controlled Hyperlipidemia Hypertension Hypothyroidism IBS (irritable bowel syndrome) Obesity Osteoarthritis Skin cancer of face Sleep apnea "mild"- told no response when device used therefore no device prescribed Exercise / Class Metabolic Activity III < 4 Walking/Shop/Light housework Past Family History Family History Mother Family history of diabetes mellitus Myocardial infarction Sister Family history of diabetes mellitus Father Lung cancer Past Surgical History Surgical History H/O Moh's micrographic surgery for skin cancer X2 H/O bilateral cataract extraction H/O left breast biopsy H/O umbilical hernia repair History of appendectomy History of bilateral tubal ligation History of bowel resection 10/09 DIVERTICULITIS History of section X4 History of cholecystectomy History of colonoscopy History of dilatation and curettage X3 History of esophagogastroduodenoscopy (EGD) History of tonsillectomy and adenoidectomy History of tooth extraction WISDOM TEETH History of total abdominal hysterectomy and bilateral salpingo-oophorectomy History of total right knee replacement (TKR) Hx of lumpectomy LEFT BREAST Past Anesthesia History No Hx of Anesthesia Complications (except remote post-op nausea) and No Family Hx of Anesthesia Complications History of PONV No Hx of Motion Sickness and History of PONV (remote post-op nausea hx) Social History Smoking Status: Never smoker Do You Dip or Chew Tobacco: No Hx Alcohol Use: No Hx Substance Use: No substance use type: does not use Review of Systems URI symptoms/cough improved s/p abx/steroids. Reflux controlled. Patient denies chest pain, shortness of breath, cough, wheezing, palpitations. Physical Exam Vital Signs VITALS BP 142/82 P 76 TEMP 98.2 SP02 96%RA RESP 18 PHYSICAL Full neck and c-spine range of motion. Full TMJ range of motion. TMD 3 finger breaths Mallampati Score 2 Dentition: intact, several crowns on molars Lungs: clear throughout to auscultation Cardiac: regular rate and rhythm, no murmurs noted Spine: normal Carotid arteries: negative bruit Extremities: no edema Testing Laboratory Results 04/15/19 11:17 04/15/19 11:17 PT 10.8 Seconds (9.0-12.0) 04/15/19 11:17 INR 1.1 (0.9-1.1) 04/15/19 11:17 APTT 25.9 Seconds (21.0-31.0) 04/15/19 11:17 Hemoglobin A1c 6.3 % (4.5-5.6) H 04/15/19 11:17 Urine Color Yellow 04/15/19 11:17 Urine Appearance Clear (Clear) 04/15/19 11:17 Urine pH 7.0 (4.5-7.5) 04/15/19 11:17 Ur Specific [place] 1.008 (1.000-1.030) 04/15/19 11:17 Urine Protein Negative (Negative) 04/15/19 11:17 Urine Glucose (UA) Negative (Negative) 04/15/19 11:17 Urine Ketones Negative (Negative) 04/15/19 11:17 Urine Nitrite Negative (Negative) 04/15/19 11:17 Ur Leukocyte Esterase Negative (Negative) 04/15/19 11:17 Blood Type O Positive 04/15/19 11:17 Antibody Screen NEGATIVE 04/15/19 11:17 04/15/19 11:17 Urine Culture - Final Urine,Clean Catch Three types of organisms present, all low counts probable skin dashawn. No further identifications or sensitivities to follow. Electrocardiogram Date: 04/15/19 Findings: + NSR @ (75) Chest X-Ray Date: 04/15/19 Cardiac silhouette is mildly enlarged, unchanged. Chronic interstitial opacities of the lungs, greatest about the left greater than right lung bases re- demonstrated. Chronic reticular nodular opacities of the upper lung zones. Nieves gical clips project over the upper abdomen. Chronic bilateral reticular nodular opacities without acute process. Stress Test Date: 12/28/18 Type: DSE Negative DSE/stress EKG for ischemia at 99% MPHR. No dobutamine induced chest pain. LVEF 60%. Moderate cLVH. Minimal aortic sclerosis. No significant valvular disease.
--- NOTE | 2019-04-15 11:51 | XRay Report ---
XR chest Pre-admission PA/Lat HISTORY: 79 years-old Female pat preoperative exam. No acute chest complaints COMPARISON: CT abdomen and pelvis 04/08/2019, chest radiograph 02/19/2018 TECHNIQUE: PA and lateral views of the chest FINDINGS: Cardiac silhouette is mildly enlarged, unchanged. No pneumothorax, pleural effusion or overt pulmonar y edema. Chronic interstitial opacities of the lungs, greatest about the left greater than right lung bases redemonstrated. Chronic reticular nodular opacities of the upper lung zones. Surgical clips pr oject over the upper abdomen. Degenerative changes of the shoulders and spine. IMPRESSION: Chronic bilateral reticular nodular opacities without acute process. The above report was generated using voice recognition software. It may contain grammatical, syntax o r spelling errors. Electronically signed by: Taran Quintanilla M.D. 04/15/2019 11:49 AM
[2019-04-15 12:23] LABS: Basophils # (auto) 0.03 K/uL (0-0.2); Basophils % (auto) 0.6 %; Eosinophils # (auto) 0.09 K/uL (0-0.5); Eosinophils % (auto) 1.7 %; Hematocrit (blood only) 38.8 % (37-47); Hemoglobin 12.9 g/dL (12.0-16.0); Immature Granulocytes # (auto) 0.02 K/uL (0.00-0.02); Immature Granulocytes % (auto) 0.4 %; Lymphocytes # (auto) 2.05 K/uL (1.2-3.4); Mean Corpuscular Hemoglobin 28.5 pg (25-34); Mean Corpuscular Hgb Conc 33.2 g/dL (32-36); Mean Corpuscular Volume 85.7 fL (80-100); Mean Platelet Volume 10.8 fL (7.4-10.4); Monocytes # (auto) 0.96 K/uL (0.11-0.59); Monocytes % (auto) 17.8 %; Neutrophils # (auto) 2.24 K/uL (1.4-6.5); Neutrophils % (auto) 41.5 %; Platelet Count 208 K/uL (130-400); RDW Coefficient of Variation 16.4 % (11.5-14.5); RDW Standard Deviation 51.7 fL (36.4-46.3); Red Blood Count 4.53 M/uL (4.2-5.4); White Blood Count 5.39 K/uL (4.8-10.8)
[2019-04-15 12:30] LABS: Appearance Urine Clear (Clear); Bilirubin Urine Negative (Negative); Blood Urine Negative (Negative); Color Urine Yellow; Glucose Urine UA Negative (Negative); Ketones Urine Negative (Negative); Leukocyte Esterase Urine Negative (Negative); Nitrite Urine Negative (Negative); Protein Urine Negative (Negative); Specific Gravity Urine 1.008 (1.000-1.030); Urobilinogen Urine Negative (Negative)
[2019-04-15 12:36] LABS: INR 1.1 (0.9-1.1); Partial Thromboplastin Time 25.9 Seconds (21.0-31.0); Prothrombin Time 10.8 Seconds (9.0-12.0)
[2019-04-15 12:45] LABS: Estimated Average Glucose 134 mg/dl; Hemoglobin A1C 6.3 % (4.5-5.6)
[2019-04-15 12:52] LABS: Calcium 9.4 mg/dl (8.5-10.1); Est GFR (African American) 79.4; Est GFR (Non-African American) 68.5; Potassium 4.5 mmol/L (3.5-5.1)
--- NOTE | 2019-04-26 17:20 | History and Physical Report ---
DATE OF ADMISSION: 05/11/2019 CHIEF COMPLAINT: Left knee pain. HISTORY OF PRESENT ILLNESS: This 79-year-old white female presents to the office with complaints of left knee pain for several years. It has become worse with time. The patient previously had a right total knee arthroplasty done a year ago and has done well with that. She elects to proceed with the same on the left. Pain is worse with weightbearing. It is affecting her ADLs. She has tried viscosupplementation, activity modification and oral NSAIDs without lasting improvement. No numbness or tingling. Preoperative imaging has been obtained. She is scheduled for a left total knee arthroplasty. PAST MEDICAL HISTORY: Significant for hypertension, elevated triglycerides, asthma, history of sleep apnea, diabetes, hypothyroidism, osteoarthritis, history of breast cancer, history of colon cancer, GERD, hiatal hernia, obesity, actinic keratosis, and history of skin cancer. PAST SURGICAL HISTORY: Tonsillectomy with adenoidectomy, x4, cholecystectomy, sigmoid colectomy, hysterectomy, left breast cancer excision, partial mastectomy/lumpectomy 2017, right total knee arthroplasty 03/17/2018. ALLERGIES: KNOWN ALLERGY TO SYNVISC, LEVAQUIN, LEVOTHYROXINE, AND BECKY INHIBITORS. CECLOR CAUSES NAUSEA. FAMILY HISTORY: Significant for cancer, diabetes, and heart disease. SOCIAL HISTORY: The patient is retired. . No tobacco use. No ETOH use. CURRENT MEDICATIONS: Amlodipine 5 mg daily, probiotic daily, vitamin D3 daily, levothyroxine 150 mcg p.o. daily, pantoprazole 40 mg 2 tablets p.o. daily, metformin 1000 mg p.o. b.i.d., ranitidine 300 mg p.o. at bedtime, simvastatin 20 mg p.o. at bedtime, mometasone nasal spray 1 spray in each nostril daily, cyclosporine ophthalmic emulsion 0.05% 1 drop in both eyes q. 12 hours, albuterol inhaler b.i.d. p.r.n., Benicar HCT 40 mg/25 mg p.o. daily, CoQ10 50 mg daily, aspirin 81 mg daily, multivitamin daily, glucosamine 1200 mg p.o. daily, fish oil 1000 mg p.o. b.i.d., Alvesco 2 puffs b.i.d., Tylenol PM nightly for sleep. REVIEW OF SYSTEMS: A total of 10 systems are reviewed and are significant for above stated conditions. PHYSICAL EXAMINATION: GENERAL: Well-developed, well-nourished, obese, elderly white female in no acute distress. Sitting in a chair. Alert and oriented. Morbidly obese in the abdomen. Relatively thin extremities. SKIN: Warm and dry with fair turgor. No rashes or lesions. No ecchymosis or erythema. No intraarticular effusion. VITAL SIGNS: Temperature 37.6, pulse 87, BP 160/56, O2 sat 94% on room air, height 164 cm, weight 107 kilograms. HEENT: Normocephalic, atraumatic. Eyes PERRLA, EOMI. Nares patent bilaterally without turbinate enlargement. Oropharynx without erythema or exudate. No lesions noted. Uvula midline. Oral mucosa moist. Dental fillings and caps are noted. HEART: RRR. No MGR. LUNGS: Clear to auscultation bilaterally. No crackles, rhonchi or wheezing. Good air movement. ABDOMEN: Morbidly obese. Bowel sounds present x4, soft, nontender. No organomegaly. No masses. MUSCULOSKELETAL: Left knee evaluation reveals no intra-articular effusion. No redness or warmth. Obvious arthritic changes. A large thigh with a small calf. There is discomfort with palpation over the medial and lateral joint lines. She has palpable crepitus with motion. Strength is 5/5 with fair quad tone. Full terminal extension. Flexion to greater than 90 degrees. Stable collateral ligaments. No defect in the patellar tendon or quadriceps tendon. Ambulatory with a slightly antalgic gait. NEUROLOGIC: Cranial nerves II through XII are intact. Gross sensation is intact across the lower extremities by soft touch. Peripheral pulses are 2+. DATA: Radiographic imaging previously obtained shows end-stage DJD in the patellofemoral joint. She has significant medial joint space narrowing, periarticular osteophytes, and subchondral sclerosis. IMPRESSION: Left knee end-stage degenerative joint disease. PLAN: Postoperative prescriptions for Percocet and Coumadin will be provided at discharge from the hospital. She does require Phenergan with any narcotic prescription. She actually did well on Ultram postoperatively the last year. Preoperative lab work, EKG, and chest x-ray have been ordered. Medical clearance has been requested from her PCP as well as her churn operator, Dr. Bolivar. She already has a walker. Anticipate discharge to home with home health nursing. Informed written consent to proceed with left total knee arthroplasty will be obtained the day of surgery.
[2019-05-11] MEDS ORDERED: CEFAZOLIN 2000MG 2,000 MG/15 ML SYR IV SCH (06:00)
[2019-05-11] MEDS ORDERED: TRANEXAMIC ACID 1,000 MG **IV Pre-op IV SCH (06:00)
[2019-05-11] MEDS ORDERED: LR 500ML BOLUS, THEN 15ML/HR IV SCH (06:00)
[2019-05-11] MEDS ORDERED: LR 60ML/HR IV SCH (06:00)
[2019-05-11] MEDS ORDERED: ROPIVACAINE 0.5% HCL/PF 150 MG, BUPIVACAINE 0.5% MPF 30 ML, EPINEPHrine 0.15 MG, Ketoro... INFIL SCH (06:00)
[2019-05-11] MEDS ORDERED: BUPIVACAINE 0.5 % 5 MG/1 ML PF 10ML VIAL ONE (06:18)
[2019-05-11] MEDS ORDERED: EPINEPHrine INJ 1 MG/ML AMP ONE (06:18)
[2019-05-11] MEDS ORDERED: ROPIVACAINE 0.5% 5 MG/ML 30 ML VIAL ONE (06:18)
--- NOTE | 2019-05-11 06:32 | History & Physical Bridge Note ---
Date of Service May 11, 2019 History & Physical Bridge Note I have examined the patient, reviewed the History & Physical and in the interval since the performance of the History & Physical I have noted the following changes of clinical significance:consent obtained. no changes noted
[2019-05-11] MEDS ORDERED: fentaNYL citrate 100 MCG/2 ML VIAL ONE (06:38)
[2019-05-11] MEDS ORDERED: MIDAZOLAM HCL 1 MG/ML 2ML VIAL ONE ×2 (06:38→07:07)
[2019-05-11] MEDS ORDERED: LIDOCAINE HCL 2% 2 ML VIAL/AMP(20MG/ML) INFIL ONE (07:19)
[2019-05-11] MEDS ORDERED: ONDANSETRON INJ 2 MG/ML 2 ML VIAL ONE (07:19)
[2019-05-11] MEDS ORDERED: PROPOFOL IV EMULSION 10 MG/ML 20 ML VIAL IV ONE ×3 (07:19→08:29)
[2019-05-11] MEDS ORDERED: ORTHO JOINT ANESTHETIC ONE (07:21)
[2019-05-11] MEDS ORDERED: ATROPINE SULFATE 0.1 MG/ML 10ML SYR IV PRN (07:32)
[2019-05-11] MEDS ORDERED: ePHEDrine sulfate 50 MG/ML AMP IV PRN (07:32)
[2019-05-11] MEDS ORDERED: HYDROmorphone INJ 1 MG/ML SYRINGE IV PRN (07:32)
[2019-05-11] MEDS ORDERED: CEFAZOLIN 1000MG 1,000 MG/7.5 ML SYR IV ONE (07:38)
--- NOTE | 2019-05-11 08:37 | Post Operative Brief Note ---
Immediate Post Op Note v1 Date of Surgery May 11, 2019 Pre & Post Diagnosis Operation Date: 05/11/19 07:00 Pre-Op Diagnosis: Left Knee End-Stage Degenerative Joint Disease Post-Op Diagnosis: Left Knee End-Stage Degenerative Joint Disease Procedure Operation Date: 05/11/19 07:00 Actual Procedures p Left Total Knee Arthroplasty(Left) - Geovani Miranda MD Surgeon Geovani Miranda MD [facility] Estimated Blood Loss 25 Findings Consistent with Post-Op Diagnosis
--- NOTE | 2019-05-11 09:00 | Operative Report ---
DATE OF OPERATION: 05/11/2019 SURGEON: Geovani Miranda MD. CLINICAL TECH: Tavo Polk PA-C. No resident or fellow available. PREOPERATIVE DIAGNOSIS: Osteoarthritis, left knee. POSTOPERATIVE DIAGNOSIS: Osteoarthritis, left knee. OPERATION PERFORMED: Cemented left total knee replacement. SUMMARY OF IMPLANTS: Size 2.5 femur, size 2.5 tibial tray rotating platform, posterior cruciate substituting oval-domed 3-peg patella, tibial insert rotating platform 2.5 x 10 PCL substituting, 2 bags of Palacos G cement. ESTIMATED BLOOD LOSS: 25 mL. PATHOLOGY: Pending on bone. CRYSTALLOID: Per anesthesia. PERIOPERATIVE SITUATION: Medically cleared female with intractable left knee pain, had a similar procedure done on the right knee years ago, now wants to proceed with left total knee replacement. DESCRIPTION OF PROCEDURE: The patient was appropriately identified, site verified, consent verified. Left lower extremity was prepped and draped in usual routine fashion. Tourniquet was inflated to 300 mmHg after exsanguination of limb with a rubber Esmarch bandage for a total of approximately 56 minutes. Midline exposure utilized. Parapatellar arthrotomy performed. Synovectomy completed. Distal femur then resected 12 mm. Proximal tibia then resected 4 mm. The femur was sized and it was anywhere between 4 and 2.5, so it was measured 4 cut 3. The tibia was then subluxated and 4 mm taken off the tibia. The extension gap was then excellent. The flexion gap was then checked and it was very tight, so the tibia was revised additional 2 mm. It was still tight, so that the femur was then downsized from a 3 to 2.5. Once this was done, the flexion gap was excellent. The extension gap stayed excellent. The box cut was then made for the 2.5 and a 2.5 femur then fit well. The tibia was then broached and reamed for 2.5 to match the femur. There was good coverage and no major overhang anywhere. The 10 mm spacer was then placed and it was stable in full flexion, mid range flexion and full extension. The patella tracked well. The patella was then everted, some soft tissue released and the patella resected leaving about 15 mm. It was sized to a 41, the seating holes made and the trial fit well and tracked well. The wound was then injected with Orthomix posteriorly and all around the knee. The knee was irrigated with Betadine and Pulsavac and then the permanent was cemented into position, tibia followed by femur, followed by patella. After 12 minutes, the tourniquet deflated. Minor bleeding points were controlled with electrocautery. After 14 minutes, the knee flexed and the trial spacer removed. No cement removal was required. The knee was irrigated with Betadine. Permanent liner seated. The knee reduced and then closed with #2 Vicryl, 2-0 Vicryl and stainless steel clips. Appropriate dressing applied. The patient was transferred to recovery room in satisfactory condition having tolerated the procedure well. Again, the operation is left total knee replacement cemented with a rotating platform PCL substituting, left knee. I attest to the content of the Intraoperative Record and any orders documented therein. Any exception s are noted below.
--- NOTE | 2019-05-11 09:02 | Operative Report ---
Post Operative Report Pre & Post Diagnosis Operation Date: 05/11/19 07:00 Pre-Op Diagnosis: Left Knee End-Stage Degenerative Joint Disease Post-Op Diagnosis: Left Knee End-Stage Degenerative Joint Disease Procedure Operation Date: 05/11/19 07:00 Actual Procedures p Left Total Knee Arthroplasty(Left) - Geovani Miranda MD Surgeon YING Miranda MD Barrel Charrer selisa Estimated Blood Loss 25 Findings Consistent with Post-Op Diagnosis Specimens see operative report Drains none Complications none Disposition Accompanied Patient To Recovery: Yes Disposition: Recovery Room Indications This 79-year-old white female presented to the office with complaints of intractable left knee pain. She had tried conservative care measures without improvement. She previously had a right total knee arthroplasty and has done well with that. She elects to proceed with the same on the left. Preoperative imaging has been obtained. Description of Procedure Patient was administered a spinal anesthetic and then taken to the operating room where she was given sedation. She was prepped and draped in the usual sterile fashion. Please see Dr. Miranda's operative report for specifics of the procedure. I was present for the entire case from initial patient positioning through final wound closure. Assistance was provided in tissue retraction, hemostasis, trial implant placement, final implant placement, and final wound closure. Patient was taken to the recovery room in satisfactory condition. I attest to the content of the Intraoperative Record and any orders documented therein. Any exceptions are noted below.
[2019-05-11] MEDS ORDERED: VANCOMYCIN HCL 1,750 MG in SODIUM CHLORIDE 0.9% 500 ML IV SCH (09:15)
--- NOTE | 2019-05-11 09:44 | XRay Report ---
LEFT KNEE 2 VIEWS History: Left total knee arthroplasty. Degenerative arthritis. Postop. FINDINGS: The patient is status post a left total knee arthroplasty. The hardware is intact. No fract ure or dislocation. Skin raven are in place. IMPRESSION: Left total knee arthroplasty. No evidence for hardware complication. Electronically signed by: Tor Mcgowan M.D. 05/11/2019 9:42 AM
[2019-05-11] MEDS ORDERED: DiphenhydrAMINE HCL 50 MG/ML VIAL IV PRN (09:55)
[2019-05-11] MEDS ORDERED: VANCOMYCIN CONSULT ACTIVE PRN (09:55)
[2019-05-11] MEDS ORDERED: ALUMINUM/MAGNESIUM SUSP 30 ML UDC PO PRN (09:55)
[2019-05-11] MEDS ORDERED: ONDANSETRON INJ 2 MG/ML 2 ML VIAL IV PRN (09:55)
[2019-05-11] MEDS ORDERED: CYCLOSPORINE OP SCH (09:55)
[2019-05-11] MEDS ORDERED: CICLESONIDE INH SCH (09:55)
[2019-05-11] MEDS ORDERED: BISACODYL 10 MG SUPP PR PRN (09:55)
[2019-05-11] MEDS ORDERED: NALOXONE HCL 0.4 MG/1 ML VIAL/CARP IV PRN (09:55)
[2019-05-11] MEDS ORDERED: METOCLOPRAMIDE HCL INJ 5 MG/ML 2 ML VIAL IV PRN (09:55)
[2019-05-11] MEDS ORDERED: HYDROmorphone INJ 0.5 MG/0.5 ML SYR IV PRN (09:55)
[2019-05-11] MEDS ORDERED: MAGNESIUM HYDROXIDE SUSP 30 ML UDC PO PRN (09:55)
[2019-05-11] MEDS ORDERED: NON-FORMULARY MEDICATION (Olmesartan-Hydrochlorothiazide 1 TAB) PO SCH (09:55)
[2019-05-11] MEDS ORDERED: SODIUM CHLORIDE 0.9% 1000ML 1,000 ML IV SCH (10:45)
--- NOTE | 2019-05-11 11:01 | Anesthesiology Progress Note ---
Date of Service May 11, 2019 Anesthesia Post Procedure Vital Signs Vital Signs: Temp Pulse Pulse Resp BP Pulse Ox 05/11/19 10:26 72 16 120/72 94 05/11/19 09:55 37.2 C 75 16 129/69 97 05/11/19 09:35 74 22 125/61 98 05/11/19 09:25 36.9 C 75 22 132/70 97 05/11/19 09:15 36.4 C L 67 17 135/68 97 05/11/19 09:05 36.4 C L 69 20 129/62 99 05/11/19 08:55 36.4 C L 65 14 124/65 99 05/11/19 08:46 36.4 C L 66 16 126/74 96 05/11/19 05:58 37.2 C 76 18 178/78 H 96 Transfer of Care Handoff Completed per policy Notes Mental Status: alert / awake / arousable Patient Amnestic to Procedure: Yes Nausea / Vomiting: adequately controlled Pain: adequately controlled Airway Patency, RR, SpO2: stable & adequate BP & HR: stable & adequate Hydration State: stable & adequate Anesthetic Complications: no major complications apparent and Pt Satisfied with anesthetic care
[2019-05-11] MEDS ORDERED: PHARMACY GLYCEMIC MGMT CONSULT PRN (11:04)
--- NOTE | 2019-05-11 11:38 | Progress Note ---
DATE: 05/11/2019 SUBJECTIVE: Postop check, doing well, already ate breakfast, has full motor function to both lower extremities. Denies any chest pain, shortness of breath, fever, chills, nausea, vomiting or headache. OBJECTIVE: Vital signs are stable. She is afebrile. Neurovascular check femoral sciatic nerve is normal. Can do straight leg raise. Can do heel and ankle and calf pumps. ASSESSMENT: Doing well. PLAN: To mobilize. Hep-Lock IV and prepare for discharge tomorrow.
--- NOTE | 2019-05-11 11:44 | Discharge Summary ---
CHIEF COMPLAINT: Left knee pain. HISTORY OF PRESENT ILLNESS: A 79-year-old female admitted for elective left total knee replacement. Hospital course has been uneventful. She is already eating, drinking, ambulating to start in the near future. She denies any chest pain, shortness of breath, fever, chills, nausea, vomiting or headache. PAST MEDICAL HISTORY: Remarkable for hypertension, triglyceride elevation, asthma, sleep apnea, diabetes, hypothyroidism, osteoarthritis, history of breast cancer, history of colon cancer, GERD, hiatal hernia, morbid obesity, actinic keratosis, and history of skin cancer. PAST SURGICAL HISTORY: Remarkable for tonsillectomy, adenoidectomy, x4, cholecystectomy, sigmoid colectomy, hysterectomy, left breast cancer excision, partial mastectomy, lumpectomy, right total knee replacement. ALLERGIES: SYNVISC, LEVAQUIN, LEVOTHYROXINE, BECKY INHIBITOR, CECLOR, and NARCOTICS CAUSE NAUSEA. FAMILY HISTORY: Remarkable for cancer, diabetes, and heart disease. SOCIAL HISTORY: Reveals she is retired, . No tobacco or alcohol use. PREADMISSION MEDICATIONS: Include amlodipine, probiotic, levothyroxine, pantoprazole, metformin, ranitidine, simvastatin, nasal spray, mometasone, cyclosporine eyedrops, albuterol inhaler, Benicar, CoQ10, aspirin 81 mg, MVI, glucosamine, fish oil, [place], 2 puffs b.i.d. p.r.n., Tylenol PM. She will be discharged on tramadol 1-2 p.o. q.4 hours p.r.n., Coumadin. Keep INR 1.8-2.2. REVIEW OF SYSTEMS: Noncontributory. ASSESSMENT: Overall doing well status post left total knee replacement. We will continue with postop care pathway for potential discharge tomorrow a.m.
--- NOTE | 2019-05-11 11:59 | Pharmacy Report ---
Glycemic Control Consultation - Date of Service May 11, 2019 - Scope Scope: Glycemic Pharmacist consulted for glycemic control and to write orders per [facility] inpatient glycemic control protocol - Objective Weight: 114.895 kg Accuchecks BSG (last 24hrs): 05/11/19 05/11/19 05:45 08:53 POC Glucose 122 H 142 H HbA1c: Hemoglobin A1c 6.3 % (4.5-5.6) H 04/15/19 11:17 - Recent Pertinent Medications Outpatient Anti-diabetic Regimen: * metformin 1,000mg PO BIDM Risk Factors for Insulin Resistance: * Steroids: ordered for POD#1 * Recent Surgery * Diet - Assessment & Plan Assessment & Plan: ASSESSMENT: * 79yo T2DM female with adequate outpatient control per recent A1c. * Pt is maintained on oral antidiabetic agents as an outpatient * Oral agents are not recommended for inpatient use d/t drug interactions, changing PO intake, and difficulty titrating for acute hyper/hypoglycemia. ADA recommends re-initiating outpatient oral agents 1-2 days prior to discharge if/when appropriate if they were held on admission. * Will hold oral agents for admission and utilize SQ basal bolus insulin regimen which is the recommended regimen for inpatient glycemic control. * Will initiate weight based NPH dosing for steroids ordered for POS#1 * NPH insulin is used to counteract the hyperglycemic effect of steroids The rationale for this approach is that the pharmacodynamics profile of NPH, with a peak effect of 4-8hrs and duration of action of 12-16hrs, mirrors the pharmacodynamics of dexamethasone. NPH should be dosed at the same time that steroid is given * The dose of NPH given is dependent on the steroid dose given * For doses of prednisone 40mg/day (equivalent) or above NPH dose should be 0.4 units/kg. Will dose based on adjusted body since since BMI >35. * NPH dosing above is given in addition to patients basal insulin needs * Typically, patients will also need rapid-acting insulin with meals PLAN FOR INPATIENT GLYCEMIC CONTROL: * Holding outpatient oral diabetes medications * Will resume 1 days prior to discharge as long as PO intake adequate and renal function WNL * Basal insulin/steroid induced hyperglycemia * Will start NPH 15 (0.2 units/kg) today if BSG > 180 mg/dl since minimal risk factors for hyperglycemia on POD#0 * NPH 32 units SQ x 1 dose tomorrow morning with dexamethasone * Bolus insulin * NovoLog per scale ACHS or Q6hrs while NPO * Goal Range: Low 100 mg/dL - High 140 mg/dL * Correction Factor: 20 mg/dL/unit * Nutritional / Prandial insulin per carb ratio of 1 unit per 7 grams CHO consumed * Please note that the plan above was derived based on current level of insulin resistance and hospital stress. These recommendations are appropriate for inpatient admission only. Plan of care upon discharge will need to be reassessed to avoid potential outpatient hypo/hyperglycemia. Thank you.
[2019-05-11] MEDS ORDERED: INSULIN HUMAN NPH SC SCH (13:00)
[2019-05-11] MEDS: INSULIN ASPART 100 UNITS/ML 3 ML PEN SC SCH ×3 (13:40→21:40)
[2019-05-11] MEDS: KETOROLAC TROMETHAMINE 15 MG/ML VIAL IV SCH ×2 (13:45→17:05)
[2019-05-11] MEDS: ASPIRIN 81 MG ECTAB PO SCH (13:45)
[2019-05-11] MEDS: ACETAMINOPHEN 500 MG TAB PO SCH ×2 (13:46→20:25)
[2019-05-11] MEDS ORDERED: ORTHO WARFARIN NOMOGRAM SCH (14:00)
[2019-05-11] MEDS: CEFAZOLIN 2000MG 2,000 MG/15 ML SYR IV SCH (15:57)
[2019-05-11] MEDS ORDERED: WARFARIN SOD 5 MG TAB PO SCH (16:00)
[2019-05-11] MEDS ORDERED: TRANEXAMIC ACID 1,000 MG in 0.9 % SODIUM CHLORIDE 100 ML IV SCH (16:00)
[2019-05-11] MEDS: FERROUS GLUCONATE 324 MG TAB PO SCH (17:05)
[2019-05-11] MEDS: ASCORBIC ACID 500 MG TAB PO SCH (17:05)
[2019-05-11] MEDS: PANTOprazole 40 MG TAB PO SCH (20:26)
[2019-05-11] MEDS: ALBUTEROL HFA 8 GM INHALER INH SCH (20:26)
[2019-05-11] MEDS: DOCUSATE SODIUM 100 MG CAP PO SCH (20:26)
[2019-05-11] MEDS ORDERED: SIMVASTATIN 20 MG TAB PO SCH (21:00)
[2019-05-11] MEDS ORDERED: SENNA 8.6 MG TAB PO SCH (21:00)
[2019-05-12] MEDS: CEFAZOLIN 2000MG 2,000 MG/15 ML SYR IV SCH (00:38)
[2019-05-12] MEDS: KETOROLAC TROMETHAMINE 15 MG/ML VIAL IV SCH ×2 (00:38→05:47)
[2019-05-12] MEDS: ACETAMINOPHEN 500 MG TAB PO SCH (05:47)
--- NOTE | 2019-05-12 06:23 | Progress Note ---
DATE: 05/12/2019 SUBJECTIVE: status post left total knee replacement. The patient is moving well. Has no chest pain, shortness of breath, fever, chills, nausea, vomiting or headache. She is eating and drinking well. OBJECTIVE: Vital signs are stable. She is afebrile. Neurovascular check, femoral sciatic nerve is normal. Can do straight leg raise. Can flex easily to 60 degrees. She is putting full weight on the knee. LABORATORY DATA: A.m. labs are pending. ASSESSMENT AND PLAN: Doing well. I will discharge to home today. Coumadin, keep INR 1.8-2.2. Please provide with prescription of promethazine for nausea. MTDD
[2019-05-12] MEDS ORDERED: LEVOTHYROXINE SODIUM 150 MCG TABLET PO SCH (06:30)
[2019-05-12 06:59] LABS: Hematocrit (blood only) 33.2 % (37-47); Hemoglobin 11.1 g/dL (12.0-16.0); Mean Corpuscular Hemoglobin 28.5 pg (25-34); Mean Corpuscular Hgb Conc 33.4 g/dL (32-36); Mean Corpuscular Volume 85.3 fL (80-100); Mean Platelet Volume 10.2 fL (7.4-10.4); Platelet Count 183 K/uL (130-400); RDW Coefficient of Variation 16.3 % (11.5-14.5); RDW Standard Deviation 51.1 fL (36.4-46.3); Red Blood Count 3.89 M/uL (4.2-5.4); White Blood Count 9.45 K/uL (4.8-10.8)
[2019-05-12 07:07] LABS: INR 1.1 (0.9-1.1); Prothrombin Time 11.2 Seconds (9.0-12.0)
[2019-05-12 07:37] LABS: BUN Creatinine Ratio 22.5 (10-20); Calcium 8.8 mg/dl (8.5-10.1); Creatinine Clr Calc Pharmacy 63.1 ml/min; Est GFR (African American) 68.2; Est GFR (Non-African American) 58.9; Potassium 4.1 mmol/L (3.5-5.1)
[2019-05-12] MEDS: TRAMADOL HCL 50 MG TABLET PO PRN ×2 (07:53→12:02)
[2019-05-12] MEDS: PANTOprazole 40 MG TAB PO SCH (07:54)
[2019-05-12] MEDS: ASPIRIN 81 MG ECTAB PO SCH (07:54)
[2019-05-12] MEDS: ASCORBIC ACID 500 MG TAB PO SCH (07:54)
[2019-05-12] MEDS: DOCUSATE SODIUM 100 MG CAP PO SCH (07:55)
[2019-05-12] MEDS: FERROUS GLUCONATE 324 MG TAB PO SCH (07:55)
[2019-05-12 07:56] VITALS: BP 112/64; PULSE 66; TEMP 97.9
[2019-05-12] MEDS: ALBUTEROL HFA 8 GM INHALER INH SCH (07:58)
[2019-05-12] MEDS ORDERED: INSULIN HUMAN NPH SC SCH (08:00)
[2019-05-12] MEDS ORDERED: WARFARIN SOD 5 MG TAB PO SCH ×2 (08:00→16:00)
[2019-05-12] MEDS ORDERED: dexAMETHasone 8 MG in SYRINGE 0 ML IV SCH (08:00)
[2019-05-12] MEDS ORDERED: NovoLIN-N (NPH) PER UNIT CHARGE SQ SCH (08:00)
[2019-05-12] MEDS ORDERED: MULTIVITAMIN TAB PO SCH (09:00)
[2019-05-12] MEDS ORDERED: hydroCHLOROthiazide 25 MG TAB PO SCH (09:00)
[2019-05-12] MEDS ORDERED: LORATADINE 10 MG TAB PO SCH (09:00)
[2019-05-12] MEDS ORDERED: AMLODIPINE BESYLATE 5 MG TAB PO SCH (09:00)
[2019-05-12] MEDS ORDERED: FLUTICASONE PROPIONATE NA SPR 16 GM BTL SCH (09:00)
[2019-05-12] MEDS ORDERED: OLMESARTAN MEDOXOMIL 40 MG TAB PO SCH (09:00)
[2019-05-12] MEDS: INSULIN ASPART 100 UNITS/ML 3 ML PEN SC SCH (09:07)
--- NOTE | 2019-05-12 09:30 | Orthopedic Progress Note ---
Date of Service May 12, 2019 Assessment & Plan (1) Status post total knee replacement, left: Continue with ice and elevation Continue use of her walker. Dressings were changed today by me. New pressure dressing was applied. Discharge today to home after PT/OT Prescriptions provided for Ultram, Phenergan, and Coumadin. Continue Coumadin 4 mg daily and have her blood rechecked on Thursday. Follow-up in the office in 2 weeks as scheduled for staple removal. Subjective Patient is seen in her room this morning. She has no complaints. She denies any nausea, vomiting, chest pain, or significant knee pain. Her only area of discomfort is her thigh. This is likely from the tourniquet. She feels ready for discharge. She has already been up walking this morning. Physical Exam Physical Exam: General: Well-developed, well-nourished, elderly white distress. Sitting in a chair. Alert and oriented. Skin: Warm and dry with good turgor. No rashes or lesions. Minimal postoperative ecchymosis. No erythema. Patient has scant drainage on her dressings. There is no active drainage from her wound. Blair are intact. Moderate intra-articular effusion, which is expected. The patient is not diaphoretic. No abrasions. Musculoskeletal: Patient has intact motor function to her toes, ankle, and knee. She has full terminal extension. Flexion to around 60 degrees. She is able to perform straight leg raise. Expected postoperative effusion. Neurologic: Gross sensation is intact across the left lower extremity by soft touch. Peripheral pulses are 2+. Results & Data Vital Signs (Past 12 Hours) Vital Signs Temp Pulse Resp BP Pulse Ox 05/12/19 07:13 36.6 C 66 16 112/64 96 05/12/19 03:39 37.0 C 61 18 151/75 H 96 05/11/19 23:42 36.7 C 63 18 144/72 H 96
--- NOTE | 2019-05-12 10:32 | Anesthesiology Progress Note ---
Date of Service May 12, 2019 Anesthesia Post Procedure Vital Signs Vital Signs: Temp Pulse Resp BP Pulse Ox 05/12/19 09:50 36.6 C 66 16 112/64 96 05/12/19 07:13 36.6 C 66 16 112/64 96 05/12/19 03:39 37.0 C 61 18 151/75 H 96 05/11/19 23:42 36.7 C 63 18 144/72 H 96 05/11/19 20:14 36.7 C 71 16 131/65 95 05/11/19 16:13 37.0 C 70 16 156/76 H 94 05/11/19 12:00 75 16 159/67 H 93 05/11/19 10:55 73 16 130/70 98 Pain Intensity Left Knee: Pain Intensity: 5 Notes Mental Status: alert / awake / arousable and participated in evaluation Patient Amnestic to Procedure: Yes Nausea / Vomiting: adequately controlled Pain: adequately controlled Airway Patency, RR, SpO2: stable & adequate BP & HR: stable & adequate Hydration State: stable & adequate Neuraxial Anesthesia: sensory block resolved Anesthetic Complications: no major complications apparent and Pt Satisfied with anesthetic care
[2019-05-12 12:33] VITALS: O2SAT 95
== END 2019-05-12 12:30 | disposition home health service (06) | DRG 470 ==
LOC: ASU 05:08 → 3E 08:58